=== PATIENT | female | born 1945 | race African-American/Black ===

== ENCOUNTER 2017-05-18 10:52 | Inpatient (IN) ==
[2017-05-18] MEDS ORDERED: FUROSEMIDE 100 MG/10 ML VIAL IV STA (11:16)
--- NOTE | 2017-05-18 11:36 | XRay Report ---
XR chest 1V portable Indication: Shortness of breath. Chest one view: No comparison. Cardiomegaly is present. Slight prominence of hilar structures with pulmonary vascular congestion and reticular prominence of the peripheral lungs noted. No focal infiltrate is seen. There is some degree of atelectasis at the lung bases exaggerated by overlying soft tissue density. Arthritic changes of the right shoulder severe. Impression: 1. CHF. 2. Bibasilar atelectasis. No focal pneumonia shown. 3. Severe arthritis right shoulder. PROCEDURE INTERPRETED AT [facility] DEPARTMENT OF RADIOLOGY Final Report Signed by: Isma Duenas M.D.
[2017-05-18 12:08] LABS: Basophils # 0.1 10*3/uL (0.0-0.2); Basophils % 0.9 % (0.0-0.8); Eosinophils # 0.3 10*3/uL (0.0-0.87); Eosinophils % 3.8 % (0.00-10.9); Hematocrit 53.1 VOL% (35.7-47.0); Hemoglobin 17.1 GM/DL (12.0-16.0); Immature Granulocytes % 0.5 %; Immature Granulocytes Absolute 0.04 #; Lymphocytes # 0.9 10*3/uL (1.4-4.0); Lymphocytes % 12.2 % (21.3-54.2); Mean Corpuscular HGB Conc 32.2 GM/DL (32-36); Mean Corpuscular Hemoglobin 28 PG (27-34); Mean Corpuscular Volume 88.2 FL (87-102); Mean Platelet Volume 9.8 FL (9.6-12.0); Monocytes # 0.6 10*3/uL (0.11-0.8); Monocytes % 7.6 % (1.7-12.7); Neutrophils # 5.5 10*3/uL (1.4-7.4); Platelet Count 161 T/CUMM (130-400); Red Blood Count 6.02 MC/CUMM (3.8-5.5); Red Cell Distribution Width 22.7 % (9.3-17.3); White Blood Count 7.4 T/CUMM (4-12)
[2017-05-18 12:22] LABS: INR 1.1; PT Patient Result 11.6 SECS; Partial Thromboplastin Time 28.2 SECS (0-40)
--- NOTE | 2017-05-18 12:22 | Emergency Department Note ---
Anthony Francis Brooke, am scribing for, and in the presence of, Jonas Soliman MD 11:23 . Janny Francis James D, MD, personally performed the services described in this documentation, ascribed by Massiel Cruz in my presence, and it is both accurate and complete . Arrival - Arrival Chief Complaint: Shortness of Breath Stated Complaint: respiratory distress/sent from office ED Nursing Triage Note: Pt sent from Dr Love's office for Resp distress, low O2 sat, swelling of lower ext, and Dx with Pneumonia 2 wks ago. Mode of Arrival: Wheelchair Limitations: No Limitations Source: Patient, Family (Daughter), RN Notes Reviewed Time Seen by Provider: 05/18/17 11:11 - History of Present Illness HPI Narrative: Patient is a 71 year old female who was sent over from [facility] with c/o respiratory distress. Patient says she does not feel short of breath. She says she does not get short of breath with exertion. She went to see the Nurse Practitioner, at [facility], with c/o bilateral lower extremity edema that has worsened. Daughter says they did a chest x-ray and says she had pneumonia. She denies having a fever, cough, or chest pain. Patient says the lower extremity edema has worsened in the past couple of weeks and she states "my feet are getting darker." She does have home oxygen(2L) that she uses. 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 The pain is worsened with movement. She denies injury or fall. Patient has PMHx of HTN, NIDDM, and COPD. She does not have a history of CHF or kidney problems. She is a smoker and says she smokes about 1/4 pack of cigarettes a day. She has been smoking since she was 20 years old. Allergies/Adverse Reactions: Allergies Allergy/AdvReac Type Severity Reaction Status Date / Time No Known Allergies Allergy Verified 05/18/17 10:58 Home Medications: Home Medications Medication Instructions Recorded Confirmed Type Albuterol Sulfate [Proair HFA] 2 puff INH Q6H PRN 05/18/17 05/18/17 History Albuterol/Ipratropium Neb [Duoneb] 3 ml RESP TX RT Q6H 05/18/17 05/18/17 History Allopurinol 100 mg PO BID 05/18/17 05/18/17 History Chlorthalidone 25 mg PO DAILY 05/18/17 05/18/17 History Diazepam Tab [Valium Tab] 5 mg PO BEDTIME 05/18/17 05/18/17 History Furosemide Tab [Lasix Tab] 40 mg PO DAILY 05/18/17 05/18/17 History Gabapentin Cap/Tab [Neurontin 600 mg PO TID 05/18/17 05/18/17 History Cap/Tab] Losartan [Cozaar] 50 mg PO DAILY 05/18/17 05/18/17 History Metoprolol Tartrate Tab [Lopressor 50 mg PO BID 05/18/17 05/18/17 History Tab] amLODIPine [Norvasc] 10 mg PO DAILY 05/18/17 05/18/17 History metFORMIN [Glucophage] 500 mg PO BID W/MEALS 05/18/17 05/18/17 History Review of System - Review of System 12 point system: reviewed and no additional remarkable complaints except as stated - Review of System Constitutional: Absent: fever Respiratory: Present: respiratory distress. Absent: cough Cardiovascular: Absent: chest pain Musculoskeletal: Present: arm pain (left) Skin: Absent: rash Medical,Surgical,& Family Hx - Medical History Cardio: History of: Hypertension Endocrine: History of: Diabetes Mellitus (NIDDM) Respiratory: History of: COPD - Social History Smoking Status: Current every day smoker Exam Vital Signs: Vital Signs Temperature 99.7 F H 05/18/17 10:55 Pulse Rate 77 05/18/17 10:55 Respiratory Rate 26 H 05/18/17 10:55 Blood Pressure 137/77 05/18/17 10:55 O2 Sat by Pulse Oximetry 73 L 05/18/17 10:55 GENERAL: This is a well-nourished well-developed black female, chronically ill- appearing, in no apparent distress. VITAL SIGNS: Reviewed HEENT: Head is atraumatic and normocephalic. Pupils are equal round react to light. Extraocular movements are intact. Oropharynx is benign with moist mucous membranes. NECK: Neck is soft and supple without tenderness. There are no masses. There is no lymphadenopathy. LUNGS: Lungs are clear to auscultation. Chest rises symmetrically. There is no chest wall tenderness. CV: Heart is regular rate and rhythm without murmurs rubs or gallops. ABDOMEN: Abdomen is soft, nontender to palpation. There are no abdominal abnormal masses palpated. There is no organomegaly. Bowel sounds are present and active. SKIN: Skin is warm and dry. No rash. EXTREMITIES: Patient has full range of motion without tenderness. There is 2+ pitting pedal edema. NEUROLOGIC: Awake alert and oriented 4 per Cranial nerves II through XII are grossly intact. Motor is 5 over 5 in all extremities bilaterally. Course - Consultations Consultation #1: Discussed with hospitalist. Patient will be admitted to their service. Time: 13:07 Results - Labs CBC & BMP: 05/18/17 11:57 05/18/17 11:57 Lab Results: I have reviewed the patients labs Labs: Laboratory Tests 05/18/17 05/18/17 11:57 11:57 Troponin I 0.029 B-Natriuretic Peptide 348 H Echocardiogram: Preliminary report consistent with pulmonary hypertension. Slightly dilated right ventricle. Appears to have normal LVEF. - EKG EKG results: interpreted by ERMD - Impressions EKG: Sinus rhythm, with sinus arrhythmia, rate 73, left axis deviation, nonspecific ST-T wave changes. - Diagnostic Findings Procedure: Chest x-ray: image reviewed by me (Cardiomegaly with increased pulmonary markings bilaterally) Disposition Clinical Impression: Dyspnea, Lower extremity edema, COPD with chronic respiratory failure, Nicotine addiction Case discussed with: patient, patient's family Disposition: Still a Patient Condition: Stable Time of Disposition: 13:07
[2017-05-18 12:26] LABS: Hypochromasia 1+; Microcytosis 1+; Polychromasia Slight; Target Cells Slight
[2017-05-18 12:27] LABS: Platelet Estimate Adequate
[2017-05-18 12:36] LABS: Albumin 3.3 G/DL (3.4-5.0); Bilirubin,Total 0.8 MG/DL (0.2-1.0); Calcium 9.4 MG/DL (8.5-10.1); Potassium 4.1 MMOL/L (3.5-5.1); Total Protein 6.6 G/DL (6.4-8.3); Troponin I Only 0.029 NG/ML (0.00-0.045)
[2017-05-18] MEDS ORDERED: FUROSEMIDE 100 MG/10 ML VIAL ONE (12:45)
[2017-05-18 13:04] LABS: Apearance,Urine CLEAR (Clear); Bilirubin,Urine Negative (Negative); Blood, Urine Negative (Negative); Glucose,Urine (UA) Negative (Negative); Ketones,Urine Negative (Negative); Nitrite,Urine Negative (Negative); Protein,Urine Negative; RBC,Urine <1 /HPF (0-4); Urine Color Yellow (Yellow); Urine Specific Gravity 1.008 (1.001-1.035); Urine Urobilinogen < 2.0 EU/DL (0.2-1.0); WBC,Urine <1 /HPF (0-6)
--- NOTE | 2017-05-18 13:31 | EKG Report ---
Stationary ECG Study [facility] ER Test Date: 05/18/2017 11:10:39 AM Pat Name: JOY SIMMS Department: Room: Gender: F Pta: : 1945 Requested by: Jonas Andersen Order Number: [id number] Reading MD: SONIDO ARANDA Intervals [place] Rate: 73 P: 55 ID: [id number] QRS: -33 QRSD: 89 T: 44 QT: 376 QTc: 401 Interpretive Statements SINUS RHYTHM WITH SINUS ARRHYTHMIA MARKED LEFT AXIS DEVIATION PATTERN CONSISTENT WITH PULMONARY DISEASE NONSPECIFIC T-WAVE ABNORMALITY Electronically Signed On 05-21-17 18:33:17 CDT by SONIDO ARANDA [email or web address]
--- NOTE | 2017-05-18 15:26 | Hospitalist History & Physical ---
<Haris Cunningham - Last Filed: 05/18/17 15:16> Assessment and Plan - Time spent with patient Time spent with patient: Greater than 30 minutes (1) COPD (chronic obstructive pulmonary disease) Status: Acute Assessment and plan: Patient presents with symptomatic dyspnea. She has a long-standing history of smoking (1/4 ppd x 20 years). Patient does have expiratory wheezing on exam. Will add breathing treatments and steroids as needed. Current Visit: Yes (2) CHF (congestive heart failure) Status: Acute Assessment and plan: BNP 348. Chest x-ray shows CHF. Patient has been given Lasix in the ED and had an output of 1700 cc at the time of exam. Will continue Lasix scheduled. Echocardiogram pending. Current Visit: Yes (3) Hypertension Status: Acute Assessment and plan: Continue home medications. Monitor closely. Current Visit: Yes (4) Hernia of abdominal cavity Status: Acute Current Visit: Yes (5) Dyspnea Status: Acute Assessment and plan: As above. Current Visit: Yes (6) Lower extremity edema Status: Acute Current Visit: Yes (7) Nicotine addiction Status: Acute Current Visit: Yes History of Present Illness Chief complaint: SOB, LE edema History of present illness: Ms. Aguilar is a 71 year old -[place] female with a past medical history significant for hypertension, NIDDM, COPD who presents to the ED today from her doctor's office for further evaluation of progressively worsening shortness of breath and lower extremity edema. Patient states that she had been short of breath for approximately 2 weeks however she has been having lower extremity edema for about 3 months now. She states that she was seen in Dr. Clark's office 2 weeks ago for shortness of breath where they got a chest x- ray revealing pneumonia. The patient was put on oral antibiotics and sent home. She returned to the clinic today with continued shortness of breath and bilateral lower extremity edema. Patient states that she routinely checks her oxygen saturations at home and they run upper 60s to upper 70s. She reports she does have home O2 which she uses intermittently as needed. Patient states that she does not feel short of breath ever. In the emergency room, the patient is satting in the upper 90s on 2 L O2 per NC. She continues to deny shortness of breath but confirms lower extremity edema with associated pain, abdominal pain, intermittent constipation, history of "shooting" left arm pain from wrist to shoulder. Lab work on admission reveals WBC 7.4, hemoglobin 17.1, hematocrit 53.1, BUN 37 , creatinine 1.00, serum glucose 118, BNP 348. Urinalysis negative for infection. Patient did have echocardiogram in the ED. Results are pending. Patient states that she has never had ultrasound of the lower extremities. Patient states that she has a long-standing history of smoking since she was in her mid 20s. States she smokes a quarter of a pack a day. This case been discussed with Dr. Soliman, ER physician, and Dr. Simon, admitting physician, and the patient will be admitted to the hospital medicine service for further evaluation and treatment. Patient is a full code. Home medications were reviewed and reconciled. Home Medications Medication Instructions Recorded Confirmed Type Albuterol Sulfate [Proair HFA] 2 puff INH Q6H PRN 05/18/17 05/18/17 History Albuterol/Ipratropium Neb [Duoneb] 3 ml RESP TX RT Q6H 05/18/17 05/18/17 History Allopurinol 100 mg PO BID 05/18/17 05/18/17 History Chlorthalidone 25 mg PO DAILY 05/18/17 05/18/17 History Diazepam Tab [Valium Tab] 5 mg PO BEDTIME 05/18/17 05/18/17 History Furosemide Tab [Lasix Tab] 40 mg PO DAILY 05/18/17 05/18/17 History Gabapentin Cap/Tab [Neurontin 600 mg PO TID 05/18/17 05/18/17 History Cap/Tab] Losartan [Cozaar] 50 mg PO DAILY 05/18/17 05/18/17 History Metoprolol Tartrate Tab [Lopressor 50 mg PO BID 05/18/17 05/18/17 History Tab] amLODIPine [Norvasc] 10 mg PO DAILY 05/18/17 05/18/17 History metFORMIN [Glucophage] 500 mg PO BID W/MEALS 05/18/17 05/18/17 History Allergies Allergy/AdvReac Type Severity Reaction Status Date / Time No Known Allergies Allergy Verified 05/18/17 10:58 Medical,Surgical,& Family Hx - Medical History Cardio: History of: Hypertension Endocrine: History of: Diabetes Mellitus (NIDDM) Respiratory: History of: COPD - Family History Family History: Reports;: Family Diabetes, Family Heart Disease, Family Hypertension - Social History Smoking Status: Current every day smoker (5 cigarettes daily for the last 40) Frequency of Alcohol Use: None Type of Drug Use: None Marital Status: Lives With:: Spouse Functional capacity: independent ambulation 12 point system: reviewed and no additional remarkable complaints except as stated Exam - Constitutional Vitals: Period Temp Pulse Resp BP Sys/Ahuja Pulse Ox Last 24 Hr 99.7 F 77 26 137/77 73 General appearance: mild distress, over weight - Head Head exam: Present: normal inspection, normocephalic, atraumatic - Eye Eye exam: Present: EOMI Pupils: Present: LUCILA - Neck Neck exam: Present: normal inspection. Absent: lymphadenopathy, tenderness, thyromegaly - Respiratory Respiratory exam: Present: wheezes (Expiratory). Absent: rhonchi - Cardiovascular Cardiovascular exam: Present: regular rate and rhythm - GI/Abdominal GI/Abdominal exam: Present: normal bowel sounds, hernia (Epigastric). Absent: tenderness, rebound - Extremities Exam Extremities exam: Present: normal inspection, full ROM, edema (Bilateral lower extremity) - Neurological Exam Neurological exam: Present: alert, oriented X3, CN II-XII intact, reflexes normal - Psychiatric Psychiatric exam: Present: anxious - Skin Skin exam: Present: warm, erythema. Absent: cyanosis Results - Labs CBC & BMP: 05/18/17 11:57 05/18/17 11:57 Lab Results: I have reviewed the past 24 hour labs - EKG EKG results: interpreted by ERMD - Diagnostic Findings Procedure: Chest x-ray: image reviewed by me, report reviewed by me (CHF with bilateral atelectasis) <Cheli Simon - Last Filed: 05/18/17 16:03> History of Present Illness History of present illness: Ms. Aguilar is a 71 year old female with multiple medical history now presenting with worsening SOB and LE swelling. Her legs are warm, erythematous and tender . Patient was seen, examined and discussed with the RADIOGRAPHIC TECHNOLOGIST. Plan Cardiac monitoring Fluid restriction GI/DVT prophylasix IV diuretics, asa, bblocker, ACEI IV Rocephin- Patient looks like she may be developing LE cellulits bilaterally Echo, serial cardiac enzymes Nicotine patch D-dimer, doppler of LE to r/o DVT Duonebs, UA,BC Exam - Constitutional Vitals: Period Temp Pulse Resp BP Sys/Ahuja Pulse Ox Last 24 Hr 99.7 F 77 26 137/77 73 Results - Labs CBC & BMP: 05/18/17 11:57 05/18/17 11:57
[2017-05-18] MEDS ORDERED: ONDANSETRON 4 MG/2 ML VIAL IV PRN (16:04)
[2017-05-18] MEDS ORDERED: ALBUTEROL 2.5 MG/3 ML NEB RESP TX PRN (16:04)
[2017-05-18] MEDS ORDERED: NICOTINE 21 MG/24 HR PATCH TRANSDERM PRN (16:04)
[2017-05-18] MEDS: ASPIRIN CHEW 81 MG TABLET PO SCH (17:10)
[2017-05-18] MEDS: ENOXAPARIN 40 MG/0.4 ML SYRINGE SUBCUT SCH (17:10)
[2017-05-18] MEDS: FUROSEMIDE 40 MG/4 ML VIAL IV SCH (17:10)
[2017-05-18] MEDS: MORPHINE 2 MG/1 ML SYRINGE IV PRN ×2 (17:20→21:29)
[2017-05-18] MEDS: cefTRIAXone 1,000 MG in SODIUM CHLORIDE 0.9% 100 ML IV SCH (17:24)
[2017-05-18 18:26] LABS: Cholesterol 156 MG/DL (50-200); Free T4 (Free Thyroxine) 1.57 NG/DL (0.76-1.46); HDL Cholesterol 70 MG/DL (40-60); Risk Ratio 2.23; Thyroid Stimulating Hormone 0.084 uIU/ml (0.358-3.74); Triglycerides 115 MG/DL (2-150); Troponin I Only 0.017 NG/ML (0.00-0.045)
--- NOTE | 2017-05-18 18:39 | ECHO Report ---
Bee Aguilar Exam Date: 05/18/2017 12:54 Referring Physician: Technologist: Yumiko Barors Age: 71 Ht (in): 65 Wt (lb): 215 Gender: F Exam Location: [facility] Echo Indications: dyspnea, lower ext. edema, respiratory distress BP: 137 / 77 HR: 112 Rhythm: Sinus Technical Quality: Fair IMPRESSIONS Normal LV systolic function, ejection fraction 60%. Grade 1/4 diastolic dysfunction. Mild concentric left ventricular hypertrophy. Right-sided chamber dilation. Trace mitral regurgitation. Mild tricuspid regurgitation. Pulmonary hypertension with pulmonary artery pressure estimated at 58 mmHg plus right atrial pressure. MEASUREMENTS (Male / Female) Normal Values 2D ECHO LV Diastolic Diameter PLAX 4.3 cm 4.2 - 5.9 / 3.9 - 5.3 cm LV Systolic Diameter PLAX 2.9 cm LV Fractional Shortening PLAX 33.5 % IVS Diastolic Thickness 1.3 cm 0.6 - 1.0 / 0.6 - 0.9 cm LVPW Diastolic Thickness 1.2 cm 0.6 - 1.0 / 0.6 - 0.9 cm Aortic Root Diameter 2.6 cm LA Systolic Diameter LX 3.2 cm 3.0 - 4.0 / 2.7 - 3.8 cm DOPPLER TR Peak Velocity 380.0 cm/s TR Peak Gradient 57.8 mmHg FINDINGS Left Ventricle Normal left ventricular cavity size. Mild concentric left ventricular hypertrophy with diastolic dysfunction. Left ventricular ejection fraction is estimated at 50-55 % Right Ventricle Mild to moderately increased right ventricular size. Right Atrium Moderately increased right atrial size. Left Atrium Normal left atrial size. Mitral Valve Morphologically normal mitral valve. Trace mitral valve regurgitation. Aortic Valve The aortic valve is trileaflet, delicate and has normal motion. Tricuspid Valve Morphologically normal tricuspid valve. Mild tricuspid valve regurgitation. Tricuspid regurgitation velocities suggest a PAP of 57.8 mmHg + RAP. Pulmonic Valve Morphologically normal pulmonic valve. Pericardium No pericardial effusion. Aorta Normal size aortic root and proximal ascending aorta. Imelda Moore MD (Electronically Signed) Final Date: 18 May 2017 18:38
[2017-05-18] MEDS: ALBUTEROL/IPRATROPIUM 3 ML NEB RESP TX SCH (19:29)
[2017-05-18 19:51] LABS: Apearance,Urine CLEAR (Clear); Bacteria,Urine Occasional /HPF (Few); Bilirubin,Urine Negative (Negative); Blood, Urine Large mg/dL (Negative); Glucose,Urine (UA) Negative (Negative); Ketones,Urine Negative (Negative); Nitrite,Urine Negative (Negative); Protein,Urine Negative; RBC,Urine 677 /HPF (0-4); Urine Color Straw (Yellow); Urine Specific Gravity 1.004 (1.001-1.035); Urine Urobilinogen < 2.0 EU/DL (0.2-1.0); WBC,Urine 19 /HPF (0-6)
--- NOTE | 2017-05-18 20:40 | Ultrasound Report ---
US venous doppler LE BI Indication: Lower extremity swelling and pain. Comparison: None. Technique: Using a transcutaneous probe, grayscale, spectral Doppler, and color Doppler images of the bilateral lower extremity venous structures were captured and stored. Grayscale images prior to and following compression were obtained. Interrogated venous structures include the bilateral common femoral vein, superficial femoral vein (proximal, mid, and distal), and popliteal vein. Findings: There is no evidence of thrombus within the interrogated venous structures. the interrogated venous segments demonstrate presence of both color flow and spectral flow. Impression: 1. No evidence of venous thrombosis. 05/18/2017 8:32 PM PROCEDURE INTERPRETED AT [facility] DEPARTMENT OF RADIOLOGY Final Report Signed by: Dr. Blaine Todd
[2017-05-18] MEDS: DIAZEPAM 5 MG TABLET PO SCH (21:28)
[2017-05-18] MEDS: ALLOPURINOL 100 MG TABLET PO SCH (21:29)
[2017-05-18] MEDS: METOPROLOL TARTRATE 50 MG TABLET PO SCH (21:29)
[2017-05-18] MEDS: GABAPENTIN 600 MG TABLET PO SCH (21:29)
[2017-05-19] MEDS: ALBUTEROL/IPRATROPIUM 3 ML NEB RESP TX SCH ×4 (00:40→19:06)
[2017-05-19 06:00] LABS: Basophils % 0.7 % (0.0-0.8); Eosinophils # 0.2 10*3/uL (0.0-0.87); Eosinophils % 2.8 % (0.00-10.9); Hematocrit 54.1 VOL% (35.7-47.0); Hemoglobin 17.3 GM/DL (12.0-16.0); Immature Granulocytes % 0.3 %; Immature Granulocytes Absolute 0.02 #; Lymphocytes # 1.2 10*3/uL (1.4-4.0); Lymphocytes % 19.2 % (21.3-54.2); Mean Corpuscular Hemoglobin 28 PG (27-34); Mean Corpuscular Volume 88.4 FL (87-102); Monocytes # 0.7 10*3/uL (0.11-0.8); Monocytes % 11.5 % (1.7-12.7); NRBC # 0.08 10*3/uL; Neutrophils % 65.5 % (38.7-73.9); Platelet Count 159 T/CUMM (130-400); Red Blood Count 6.12 MC/CUMM (3.8-5.5); Red Cell Distribution Width 22.9 % (9.3-17.3); White Blood Count 6.2 T/CUMM (4-12)
[2017-05-19 06:30] LABS: Hypochromasia 1+; Microcytosis Slight; Platelet Estimate Normal
[2017-05-19 06:31] LABS: Alanine Aminotransferase 42 U/L (13-56); Albumin 3.1 G/DL (3.4-5.0); Alkaline Phosphatase 150 U/L (45-117); Aspartate Amino Transferase 23 U/L (0-37); Blood Urea Nitrogen 26 MG/DL (7-18); Glucose 118 MG/DL (74-106); Magnesium 2.2 MG/DL (1.8-2.4); Osmolality,Calculated 291.8 MOS/KG (273-304); Potassium 3.8 MMOL/L (3.5-5.1); Sodium 144 MMOL/L (136-145); Total Protein 6.5 G/DL (6.4-8.3); Troponin I Only < 0.015 NG/ML (0.00-0.045)
[2017-05-19] MEDS: FUROSEMIDE 40 MG/4 ML VIAL IV SCH ×2 (10:09→16:40)
[2017-05-19] MEDS: GABAPENTIN 600 MG TABLET PO SCH ×3 (10:09→20:27)
[2017-05-19] MEDS: METOPROLOL TARTRATE 50 MG TABLET PO SCH ×2 (10:10→20:28)
[2017-05-19] MEDS: amLODIPine 10 MG TABLET PO SCH (10:10)
[2017-05-19] MEDS: PANTOPRAZOLE 40 MG TABLET PO SCH (10:11)
[2017-05-19] MEDS: ALLOPURINOL 100 MG TABLET PO SCH ×2 (10:11→20:28)
[2017-05-19] MEDS: CHLORTHALIDONE 25 MG TABLET PO SCH (10:11)
[2017-05-19] MEDS: ASPIRIN CHEW 81 MG TABLET PO SCH (10:11)
[2017-05-19] MEDS: LOSARTAN 50 MG TABLET PO SCH (10:12)
--- NOTE | 2017-05-19 13:22 | Hospitalist Progress Note ---
Assessment and Plan (1) CHF (congestive heart failure) Status: Acute Assessment and plan: Echo showed Normal LV systolic function, ejection fraction 60%. Grade 1/4 diastolic dysfunction. Mild concentric left ventricular hypertrophy Plan Continue nebds treatment, IV diuretics, asa, bblocker,ACEI Current Visit: Yes (2) COPD (chronic obstructive pulmonary disease) Status: Acute Assessment and plan: continue bronchodilators, oxygen Current Visit: Yes (3) Hypertension Status: Acute Assessment and plan: stable Current Visit: Yes (4) Lower extremity edema Status: Acute Assessment and plan: Doppler showed no DVT. There is possible early cellulitis which appears to be improving. Plan Continue with diuretics and Rocephin Follow IV Rocephin Current Visit: Yes (5) Nicotine addiction Status: Acute Assessment and plan: on patch. She was counseled to quit. Current Visit: Yes (6) Diabetes Status: Acute Assessment and plan: stable on current regime. [id number] Current Visit: Yes Hospitalist: Subjective Interval history: Patient complains of a back pain but breathes better. Exam - Constitutional Vitals: Period Temp Pulse Resp BP Sys/Ahuja Pulse Ox Last 24 Hr 97.2 F-99.7 F 56-89 18-26 115-142/55-77 80-97 General appearance: no acute distress - Head Head exam: Present: normal inspection - Respiratory Respiratory exam: Present: clear to auscultation bilaterally - Cardiovascular Cardiovascular exam: Present: regular rate and rhythm - GI/Abdominal GI/Abdominal exam: Present: normal bowel sounds - Extremities Exam Extremities exam: Present: other (trace edema) - Neurological Exam Neurological exam: Present: alert, oriented X3 Results - Labs CBC & BMP: 05/19/17 05:41 05/19/17 05:41 Lab Results: I have reviewed the past 24 hour labs
[2017-05-19] MEDS: ENOXAPARIN 40 MG/0.4 ML SYRINGE SUBCUT SCH (16:40)
[2017-05-19] MEDS: cefTRIAXone 1,000 MG in SODIUM CHLORIDE 0.9% 100 ML IV SCH (16:40)
[2017-05-19] MEDS: DIAZEPAM 5 MG TABLET PO SCH (20:28)
[2017-05-19] MEDS: MORPHINE 2 MG/1 ML SYRINGE IV PRN (20:28)
[2017-05-20] MEDS: ALBUTEROL/IPRATROPIUM 3 ML NEB RESP TX SCH ×4 (00:20→19:55)
[2017-05-20 06:37] LABS: Basophils # 0.1 10*3/uL (0.0-0.2); Basophils % 0.6 % (0.0-0.8); Eosinophils # 0.5 10*3/uL (0.0-0.87); Eosinophils % 6.2 % (0.00-10.9); Hematocrit 55.3 VOL% (35.7-47.0); Hemoglobin 17.6 GM/DL (12.0-16.0); Immature Granulocytes % 0.5 %; Immature Granulocytes Absolute 0.04 #; Lymphocytes # 1.7 10*3/uL (1.4-4.0); Lymphocytes % 20.7 % (21.3-54.2); Mean Corpuscular HGB Conc 31.8 GM/DL (32-36); Mean Corpuscular Hemoglobin 28 PG (27-34); Mean Corpuscular Volume 88.5 FL (87-102); Monocytes # 0.9 10*3/uL (0.11-0.8); Monocytes % 11.3 % (1.7-12.7); NRBC # 0.06 10*3/uL; Neutrophils # 4.9 10*3/uL (1.4-7.4); Neutrophils % 60.7 % (38.7-73.9); Platelet Count 170 T/CUMM (130-400); Red Blood Count 6.25 MC/CUMM (3.8-5.5); Red Cell Distribution Width 22.7 % (9.3-17.3); White Blood Count 8.1 T/CUMM (4-12)
[2017-05-20 07:12] LABS: Calcium 8.7 MG/DL (8.5-10.1); Osmolality,Calculated 289.3 MOS/KG (273-304); Potassium 3.4 MMOL/L (3.5-5.1)
[2017-05-20 07:14] LABS: Hypochromasia 1+; Platelet Estimate Adequate; Polychromasia Slight
[2017-05-20] MEDS: FUROSEMIDE 40 MG/4 ML VIAL IV SCH ×2 (08:35→16:30)
[2017-05-20] MEDS: GABAPENTIN 600 MG TABLET PO SCH ×3 (08:35→20:19)
[2017-05-20] MEDS: amLODIPine 10 MG TABLET PO SCH (08:35)
[2017-05-20] MEDS: ALLOPURINOL 100 MG TABLET PO SCH ×2 (08:36→20:19)
[2017-05-20] MEDS: PANTOPRAZOLE 40 MG TABLET PO SCH (08:36)
[2017-05-20] MEDS: CHLORTHALIDONE 25 MG TABLET PO SCH (08:36)
[2017-05-20] MEDS: ASPIRIN CHEW 81 MG TABLET PO SCH (08:36)
[2017-05-20] MEDS: METOPROLOL TARTRATE 50 MG TABLET PO SCH ×2 (08:36→20:19)
[2017-05-20] MEDS: LOSARTAN 50 MG TABLET PO SCH (08:36)
--- NOTE | 2017-05-20 13:11 | XRay Report ---
History: Pain Date: 05/20/2017 Study: Left shoulder 2 views Comparison exam: No previous similar study available for comparison There is no fracture, dislocation, or focal destructive osseous abnormality. There is mild hypertrophic change of the acromioclavicular joint. There is mild osteophyte formation of the inferior aspect of the glenoid process. There is osteopenia. Impression: Degenerative changes. Osteopenia. No definite acute process PROCEDURE INTERPRETED AT [facility] DEPARTMENT OF RADIOLOGY Final Report Signed by: Dr. Mya Henderson
[2017-05-20] MEDS: cefTRIAXone 1,000 MG in SODIUM CHLORIDE 0.9% 100 ML IV SCH (16:30)
[2017-05-20] MEDS: ENOXAPARIN 40 MG/0.4 ML SYRINGE SUBCUT SCH (16:30)
[2017-05-20] MEDS: DIAZEPAM 5 MG TABLET PO SCH (20:19)
[2017-05-21] MEDS: ALBUTEROL/IPRATROPIUM 3 ML NEB RESP TX SCH ×5 (00:12→23:55)
[2017-05-21] MEDS: FUROSEMIDE 40 MG/4 ML VIAL IV SCH (08:00)
[2017-05-21] MEDS: METOPROLOL TARTRATE 50 MG TABLET PO SCH ×2 (08:03→20:43)
[2017-05-21] MEDS: ALLOPURINOL 100 MG TABLET PO SCH ×2 (08:03→20:43)
[2017-05-21] MEDS: amLODIPine 10 MG TABLET PO SCH (08:03)
[2017-05-21] MEDS: CHLORTHALIDONE 25 MG TABLET PO SCH (08:03)
[2017-05-21] MEDS: PANTOPRAZOLE 40 MG TABLET PO SCH (08:03)
[2017-05-21] MEDS: GABAPENTIN 600 MG TABLET PO SCH ×3 (08:03→20:42)
[2017-05-21] MEDS: ASPIRIN CHEW 81 MG TABLET PO SCH (08:03)
[2017-05-21] MEDS: LOSARTAN 50 MG TABLET PO SCH (08:06)
--- NOTE | 2017-05-21 15:08 | Hospitalist Progress Note ---
Assessment and Plan (1) Lower extremity edema Status: Acute Assessment and plan: Much better Current Visit: Yes (2) Nicotine addiction Status: Acute Current Visit: Yes (3) COPD (chronic obstructive pulmonary disease) Status: Acute Assessment and plan: ulises Fenton Current Visit: Yes (4) Hypertension Status: Acute Assessment and plan: Home medications Current Visit: Yes Hospitalist: Subjective Interval history: No acute events overnight. Patient is without complaints. Long discussion with patient and her daughter about smoking cessation. Patient reports that she has no desire to stop smoking, although she know that it will eventually kill her. Exam - Constitutional Vitals: Period Temp Pulse Resp BP Sys/Ahuja Pulse Ox Last 24 Hr 96.7 F-97.8 F 55-71 12-22 104-129/46-69 81-93 General appearance: over weight - Head Head exam: Present: normocephalic, atraumatic - Eye Eye exam: Present: EOMI Pupils: Present: LUCILA - ENT ENT exam: Present: normal exam - Neck Neck exam: Present: normal inspection - Respiratory Respiratory exam: Present: clear to auscultation bilaterally. Absent: rhonchi, wheezes - Cardiovascular Cardiovascular exam: Present: regular rate and rhythm - GI/Abdominal GI/Abdominal exam: Present: normal bowel sounds, soft. Absent: tenderness, rebound - Extremities Exam Extremities exam: Present: normal inspection - Back Exam Back exam: Present: normal inspection - Neurological Exam Neurological exam: Present: alert, oriented X3 - Psychiatric Psychiatric exam: Present: normal affect, normal mood - Skin Skin exam: Present: warm, intact Results - Labs CBC & BMP: 05/20/17 06:19 05/20/17 06:19
[2017-05-21] MEDS ORDERED: MAGNESIUM HYDROXIDE SUSP 30 ML UDCUP PO ONE (15:51)
--- NOTE | 2017-05-21 16:14 | Hospitalist Progress Note ---
Assessment and Plan (1) Lower extremity edema Status: Acute Assessment and plan: Much better Switch lasix to po Current Visit: Yes (2) Nicotine addiction Status: Acute Current Visit: Yes (3) COPD (chronic obstructive pulmonary disease) Status: Acute Assessment and plan: Has not been formally diagnosed with PFTs, she does have an extensive smoking history and still smokes Duonebs, abx Wheezing today, change duonebs to Q4 and add low dose prednisone Also very sleepy, her bicarb is slightly elevated Will check ABGs Will also consider sleep evaluation, inpatient vs outpatient Current Visit: Yes (4) Hypertension Status: Acute Assessment and plan: Home medications Current Visit: Yes Hospitalist: Subjective Interval history: No acute events overnight. Patient is drowsy, she will wake up and answer questions appropriately though. She says that she has just been sleeping a lot. Exam - Constitutional Vitals: Period Temp Pulse Resp BP Sys/Ahuja Pulse Ox Last 24 Hr 96.7 F-97.8 F 55-71 12-22 110-129/46-69 81-93 General appearance: over weight - Head Head exam: Present: normocephalic, atraumatic - Eye Eye exam: Present: EOMI Pupils: Present: LUCILA - ENT ENT exam: Present: normal exam - Neck Neck exam: Present: normal inspection - Respiratory Respiratory exam: Present: wheezes - Cardiovascular Cardiovascular exam: Present: regular rate and rhythm - GI/Abdominal GI/Abdominal exam: Present: normal bowel sounds, soft. Absent: tenderness, rebound - Extremities Exam Extremities exam: Present: normal inspection - Back Exam Back exam: Present: normal inspection - Neurological Exam Neurological exam: Present: alert, oriented X3 - Psychiatric Psychiatric exam: Present: normal affect, normal mood - Skin Skin exam: Present: warm, intact Results - Labs CBC & BMP: 05/20/17 06:19 05/20/17 06:19
[2017-05-21] MEDS: ENOXAPARIN 40 MG/0.4 ML SYRINGE SUBCUT SCH (16:18)
[2017-05-21] MEDS: cefTRIAXone 1,000 MG in SODIUM CHLORIDE 0.9% 100 ML IV SCH (16:19)
[2017-05-21] MEDS ORDERED: predniSONE 20 MG TABLET PO SCH (16:30)
[2017-05-21 17:53] LABS: ABG HCO3 32.3 MMOL/L (20-26); ABG Oxygen Saturation 82.5 % (95-100); ABG PCO2 59.1 MM HG (35-48); ABG PH 7.404 (7.35-7.45); ABG PO2 47.9 MM HG (80-95); ABG TCO2 30.7 MMOL/L (23-27)
[2017-05-21] MEDS: DIAZEPAM 5 MG TABLET PO SCH (20:43)
[2017-05-22 03:44] LABS: ABG Base Excess 8.2 MMOL/L (-2.5-2.5); ABG HCO3 35.5 MMOL/L (20-26); ABG Oxygen Saturation 82.5 % (95-100); ABG PCO2 58.5 MM HG (35-48); ABG PH 7.401 (7.35-7.45); ABG PO2 43.9 MM HG (80-95); ABG TCO2 37.3 MMOL/L (23-27); Allen Test Positive; Pt O2 Delivery Device BIPAP
[2017-05-22] MEDS: ALBUTEROL/IPRATROPIUM 3 ML NEB RESP TX SCH ×5 (04:08→19:38)
[2017-05-22 06:41] LABS: Basophils % 0.7 % (0.0-0.8); Eosinophils # 0.1 10*3/uL (0.0-0.87); Eosinophils % 1.3 % (0.00-10.9); Hematocrit 53.1 VOL% (35.7-47.0); Hemoglobin 16.6 GM/DL (12.0-16.0); Immature Granulocytes % 0.3 %; Immature Granulocytes Absolute 0.02 #; Lymphocytes # 0.7 10*3/uL (1.4-4.0); Lymphocytes % 11.9 % (21.3-54.2); Mean Corpuscular HGB Conc 31.3 GM/DL (32-36); Mean Corpuscular Hemoglobin 28 PG (27-34); Mean Corpuscular Volume 89.4 FL (87-102); Mean Platelet Volume 10.7 FL (9.6-12.0); Monocytes # 0.4 10*3/uL (0.11-0.8); NRBC # 0.03 10*3/uL; Neutrophils # 4.9 10*3/uL (1.4-7.4); Neutrophils % 79.8 % (38.7-73.9); Platelet Count 181 T/CUMM (130-400); Red Blood Count 5.94 MC/CUMM (3.8-5.5); White Blood Count 6.1 T/CUMM (4-12)
[2017-05-22 07:14] LABS: Magnesium 2.9 MG/DL (1.8-2.4); Osmolality,Calculated 297.3 MOS/KG (273-304); Potassium 3.8 MMOL/L (3.5-5.1)
--- NOTE | 2017-05-22 08:26 | Hospitalist Progress Note ---
Assessment and Plan (1) Lower extremity edema Status: Acute Assessment and plan: Much better Lasix 40 po Current Visit: Yes (2) Nicotine addiction Status: Acute Current Visit: Yes (3) COPD (chronic obstructive pulmonary disease) Status: Acute Assessment and plan: Has not been formally diagnosed with PFTs, she does have an extensive smoking history and still smokes Duonebs, abx Also very sleepy, her bicarb is slightly elevated ABGs with CO2 retention, she appears to be attempting to compensate Changing to high dose steroids Repeating CXR and ABGs Pulmonary has been consulted Will also check a d-dimer Current Visit: Yes (4) Hypertension Status: Acute Assessment and plan: Home medications Current Visit: Yes Hospitalist: Subjective Interval history: No acute events overnight. Patient remains drowsy this morning. ABG yesterday evening 7.4/59/32. She was started on Bipap overnight. Per reports she did wear it. Her ABG collected early this morning is 7.4/58/43. Pulmonary has been consulted. Will recheck her ABG and CXR. Her oxxygen saturations have been hanging out at 88-89. Exam - Constitutional Vitals: Period Temp Pulse Resp BP Sys/Ahuja Pulse Ox Last 24 Hr 96.7 F-97.6 F 54-71 12-22 110-140/53-81 82-92 General appearance: over weight - Head Head exam: Present: normocephalic, atraumatic - Eye Eye exam: Present: EOMI Pupils: Present: LUCILA - ENT ENT exam: Present: normal exam - Neck Neck exam: Present: normal inspection - Respiratory Respiratory exam: Present: clear to auscultation bilaterally. Absent: rhonchi, wheezes - Cardiovascular Cardiovascular exam: Present: regular rate and rhythm - GI/Abdominal GI/Abdominal exam: Present: normal bowel sounds, soft. Absent: tenderness, rebound - Extremities Exam Extremities exam: Present: normal inspection - Back Exam Back exam: Present: normal inspection - Neurological Exam Neurological exam: Present: alert, oriented X3, other (drowsy) - Psychiatric Psychiatric exam: Present: normal affect, normal mood - Skin Skin exam: Present: warm, intact Results - Labs CBC & BMP: 05/22/17 05:18 05/22/17 05:18
[2017-05-22] MEDS ORDERED: methylPREDNISolone SOD SUC 40 MG/1 ML VIAL IV SCH (08:30)
--- NOTE | 2017-05-22 08:55 | XRay Report ---
Single view the chest. Indication: Shortness of breath. Comparison: May 18, 2017. The heart is enlarged. The film was obtained in expiration. Mild atelectasis at the left base. Pulmonary vasculature is normal. No consolidation or pleural effusion. Prominent degenerative changes at the right shoulder. Ossific density projecting under the glenohumeral joint. Impression: Cardiomegaly and left basilar atelectasis. PROCEDURE INTERPRETED AT [facility] DEPARTMENT OF RADIOLOGY Final Report Signed by: Dr. Joanna Ponce
[2017-05-22] MEDS: amLODIPine 10 MG TABLET PO SCH (08:56)
[2017-05-22] MEDS: LOSARTAN 50 MG TABLET PO SCH (08:56)
[2017-05-22] MEDS: ASPIRIN CHEW 81 MG TABLET PO SCH (08:57)
[2017-05-22] MEDS: METOPROLOL TARTRATE 50 MG TABLET PO SCH ×2 (08:57→20:39)
[2017-05-22] MEDS: GABAPENTIN 600 MG TABLET PO SCH ×3 (08:57→20:39)
[2017-05-22] MEDS: PANTOPRAZOLE 40 MG TABLET PO SCH (08:57)
[2017-05-22] MEDS: FUROSEMIDE 40 MG TABLET PO SCH (08:57)
[2017-05-22] MEDS: CHLORTHALIDONE 25 MG TABLET PO SCH (08:57)
[2017-05-22] MEDS: ALLOPURINOL 100 MG TABLET PO SCH ×2 (08:57→20:39)
[2017-05-22] MEDS: AZITHROMYCIN INJ 500 MG in SODIUM CHLORIDE 0.9% 250 ML IV SCH (08:59)
[2017-05-22 09:12] LABS: ABG Base Excess 8.5 MMOL/L (-2.5-2.5); ABG HCO3 31.9 MMOL/L (20-26); ABG Oxygen Saturation 87.7 % (95-100); ABG PCO2 57.2 MM HG (35-48); ABG PH 7.407 (7.35-7.45); ABG PO2 53.7 MM HG (80-95); ABG TCO2 29.9 MMOL/L (23-27); Allen Test Positive
--- NOTE | 2017-05-22 11:00 | Pulmonology Consult Note ---
History of Present Illness Chief complaint: Hypoxemia. Hypercarbia. 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 This patient is followed by Dr. Yeison Love. She complains of shortness of breath for 2 weeks and swelling of her lower extremities for 3 months. She told the nurse she carries an O2 sat monitor around with her at home and her O2 sats are usually in the 80s. I asked her what that she think was a cause of her lung problems and she said cigarette smoking. She denies any other known problems with her lungs. Patient denies solid dysphasia. Occasionally she has gastroesophageal reflux but absolutely denies any nocturnal symptoms and she denies any symptoms of aspiration. There is been no hemoptysis. She occasionally has a small amount of sputum production. Patient complains of shortness of breath and dyspnea on exertion. She has complained of some shooting pain in her left arm. The remainder the review of systems is negative. Allergies none Home medicines. See below Hospital medicines see below Past history. COPD. High blood pressure. [id number] diabetes mellitus. Gout. Bronchospastic disease. Social history smokes 5 cigarettes per day. Has smoked for 40 years. Denies alcohol and drug use. . 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 Family history. Positive for high blood pressure, diabetes mellitus and heart disease Doppler venograms. 05/18/2017. No evidence of deep venous thrombophlebitis. EKG. Regular sinus rhythm. Left anterior hemiblock. Nonspecific STs and T's. Echocardiogram. 05/18/2017. Ejection fraction 50%. Grade 1/4 diastolic dysfunction. Mild concentric left ventricular hypertrophy. Right-sided atrial and ventricular dilatation. Pulmonary artery pressures were estimated to be 58 mmHg. Chest x-ray. 05/18/2017 and 05/22/2017. Mild cardiomegaly. Cannot rule out interstitial lung disease. This is complicated by a lot of overlying soft tissue. ABGs on 05/21/2017 showed a pH of 7.40, PCO2 59.1, PO2 of 47.9 and a bicarb of 32.5. ABGs on 05/22/2017 and an FiO2 of 28% show a pH of 7.407, PCO2 of 57.2, PO2 53.7 and a bicarb of 31.9 Lab electrolytes are normal. Admit nitrated peptide was elevated 348 and a follow-up was normal and 96. Creatinine is 1.2 with a BUN of 38. H&H is 16.6/ 53.4. White count is 6100 and platelets are 181,000. Urine shows no evidence of infection. TSH is low and free T4 is is elevated. Physical exam. Vital signs. See below Psychiatric. Oriented 3 Neurologic. Cranial nerves are intact. Long track motor functions intact. Gait was not tested and sensory exam was not done Face. Symmetrical. No edema of the lips or tongue. Neck. Symmetrical slightly kyphotic with no meningismus and no masses. Thyroid was not palpated Lymphatics. No submandibular cervical supraclavicular or epitrochlear adenopathy. Chest is symmetrical kyphotic with mild prolongation of expiration. I did not hear any wheezes. Heart. Heart sounds are distant. I cannot hear a gallop or murmur. Breasts. Deferred Abdomen. Obese and nontender with positive bowel sounds Lower extremities. Chronic venous stasis with mild residual edema. Skin. Face and hands show no cancerous or infectious lesions. Lower extremities show chronic venous stasis. No other areas of skin were examined. The remainder the physical exam was negative. Impression. 1. Respiratory failure for oxygen and carbon dioxide. I suspect this is chronic especially in the face of polycythemia. Also the patient says she has an O2 sat monitor and her sats are chronically in the 80s. Because of the hypoxemia is not apparent. May be related related to emphysema but chest x-ray suggests there may be an interstitial component. 2. Tobacco abuse 3. Polycythemia most likely related to hypoxemia 4. Diabetes mellitus 5. 3 month history of increasing peripheral edema. Echo cardiographic evidence of enlarged right atrium and right ventricle. Pulmonary hypertension by echocardiographic criteria. This looks like right heart failure on the basis of pulmonary hypertension 6. Pulmonary hypertension. Etiology undetermined. Sleep apnea could be playing a part. Look for other causes such as chronic pulmonary emboli. Note that the patient was on Norvasc 10 mg daily at the time of admission. This would be the first drug to use in most cases so her pulmonary hypertension may already be a diagnosis. 7. Diabetes mellitus 8. High blood pressure 9. See past history Plan 1. CT of the chest with and without contrast. Look for interstitial lung disease. Evaluate pulmonary arteries. Rule out pulmonary emboli. 2. Complete pulmonary function test pre-and postbronchodilator spirometry 3. Agree with sleep medicine consultation 4. Angiotensin-converting enzyme 5. Sedimentation rate. 6. Diamox 250 mg p.o. twice daily 7. Follow-up ABGs, chest x-ray, BNP, BMP Home Medications Medication Instructions Recorded Confirmed Type Albuterol Sulfate [Proair HFA] 2 puff INH Q6H PRN 05/18/17 05/18/17 History Albuterol/Ipratropium Neb [Duoneb] 3 ml RESP TX RT Q6H 05/18/17 05/18/17 History Allopurinol 2 tablet PO BID 05/18/17 05/18/17 History Aspirin EC Tab 1 tablet PO DAILY 05/18/17 05/18/17 History Cetirizine Tab [ZyrTEC Tab] 1 tablet PO DAILY PRN 05/18/17 05/18/17 History Chlorthalidone 25 mg PO DAILY 05/18/17 05/18/17 History Diazepam Tab [Valium Tab] 5 mg PO BEDTIME 05/18/17 05/18/17 History Gabapentin Cap/Tab [Neurontin 600 mg PO TID 05/18/17 05/18/17 History Cap/Tab] Glycopyrrolate/Formoterol Fum 1 inhaler INH DAILY 05/18/17 05/18/17 History [Bevespi Aerosphere Inhaler] Losartan [Cozaar] 50 mg PO DAILY 05/18/17 05/18/17 History Metoprolol Tartrate Tab [Lopressor 50 mg PO BID 05/18/17 05/18/17 History Tab] Triamcinolone Acetonide 1 applic TOP BID 05/18/17 05/18/17 History [Triamcinolone 0.1% Cream] metFORMIN [Glucophage] 500 mg PO BID W/MEALS 05/18/17 05/18/17 History Allergies Allergy/AdvReac Type Severity Reaction Status Date / Time No Known Allergies Allergy Verified 05/18/17 10:58 Exam (Pulmonay) H&P - Constitutional Vitals: Period Temp Pulse Resp BP Sys/Ahuja Pulse Ox Last 24 Hr 96.7 F-97.6 F 54-71 12-22 110-140/53-81 82-92 Medical,Surgical,& Family Hx - Medical History Cardio: History of: Hypertension Psychological: No history of: Anxiety Disorders, ADHD, Behavior Problems, Bipolar Disorder, Depression, Previous Suicide Attempt, Psychiatric/Substance Abuse Tx, Schizophrenia, Violent Behavior, Psychiatric Problems Endocrine: History of: Diabetes Mellitus (NIDDM) Respiratory: History of: COPD - Family History Family History: Reports;: Family Diabetes, Family Heart Disease, Family Hypertension - Social History Smoking Status: Current every day smoker Frequency of Alcohol Use: None Type of Drug Use: None Results - Labs CBC & BMP: 05/22/17 05:18 05/22/17 05:18
[2017-05-22 11:42] LABS: Free T4 (Free Thyroxine) 1.17 NG/DL (0.76-1.46); Thyroid Stimulating Hormone 0.019 uIU/ml (0.358-3.74)
--- NOTE | 2017-05-22 12:34 | CT Report ---
CT of the chest with and without contrast. Indication: Hypoxemia and decreased oxygen saturation. Axial images were obtained with sagittal and coronal reconstructions. No prior studies. 100 cc Optiray 350. No prior studies. The thyroid gland is borderline prominent in size. No supraclavicular lymphadenopathy is seen. There are lymph nodes within both axillary regions which measure enlarged but retain their fatty maría. There are dilated venous structures within the right breast. There are coarse calcifications within each breast. The thoracic aorta is of normal caliber, with heavy plaque in its wall. There is coronary artery calcification. The heart is normal in size. There is no pericardial or pleural effusion. There is hilar and mediastinal lymphadenopathy present. An AP window lymph node measures 3.1 x 1.1 cm. A precarinal lymph node measures 2.6 x 1.5 cm. A subcarinal lymph node measures 2.3 x 2.6 cm. A second subcarinal lymph node measures 3.6 x 2.3 cm. Multiple hilar lymph nodes in the 1 to 2 cm range. Hypoaeration changes are noted at the lung bases. The interstitial markings are prominent and there is some scarring also present. No suspicious pulmonary masses are identified. The fine and coarse interstitial markings are prominent. No emphysematous change. No bullous disease. There is scoliosis and degenerative change involving the spinal column. A cyst is present within the mid right kidney. Impression: 1. Borderline prominent thyroid gland. 2. Atherosclerosis. 3. Hilar and mediastinal lymphadenopathy. 4. Scarring and fibrotic changes of the lung lal. 5. Dilated venous structures within the right breast. 6. Bilateral breast calcifications. The CT exam was performed using one or more of the following dose reduction techniques: Automated exposure control, adjustment of the mA and/or kV according to patient size, or use of iterative reconstruction technique. PROCEDURE INTERPRETED AT [facility] DEPARTMENT OF RADIOLOGY Final Report Signed by: Dr. Joanna Ponce
--- NOTE | 2017-05-22 13:29 | Sleep Medicine Consult ---
Assessment and Plan (1) Unspecified sleep apnea Status: Acute Assessment and plan: Her symptoms certainly are concerning for sleep apnea and with her comorbidities , I do think sleep evaluation is indicated. Given the complexity of her illness and her comorbidities, I think she would best be served by evaluation in the sleep lab. This will be scheduled at the next available date. Current Visit: Yes (2) Hypertension Status: Acute Assessment and plan: The prevalence rate for obstructive sleep apnea patients with hypertension is 35 %. That rate can be as high as 80% in patients who require 4 or more medications for blood pressure control. Current Visit: Yes (3) Diabetes Status: Acute Assessment and plan: The prevalence rate for obstructive sleep apnea in patients with type 2 diabetes can be as high as 86%. Those patients with moderate to severe obstructive sleep apnea are at a greater risk for diabetic nephropathy and neuropathy. Compliance with CPAP therapy for these patients can lead to improvement in glycemic control and improvement in insulin sensitivity. Current Visit: Yes History of Present Illness Chief complaint: Sleep apnea History of present illness: Ms. Aguilar is a 71 year old female admitted with shortness of breath and lower extremity swelling. She was found to have evidence of chronic respiratory failure and pulmonary hypertension. She does snore and does have problems with daytime fatigue and sleepiness. She had a stop bang score of 5 and an [place] sleepiness score of 15. She states that she had undergone sleep study in the past in [place] but did not require CPAP therapy for sleep apnea. She has gained significant weight with fluid retention over the past few weeks and was found to have evidence of chronic respiratory failure and pulmonary hypertension. Sleep medicine was consulted. Home Medications Medication Instructions Recorded Confirmed Type Albuterol Sulfate [Proair HFA] 2 puff INH Q6H PRN 05/18/17 05/18/17 History Albuterol/Ipratropium Neb [Duoneb] 3 ml RESP TX RT Q6H 05/18/17 05/18/17 History Allopurinol 2 tablet PO BID 05/18/17 05/18/17 History Aspirin EC Tab 1 tablet PO DAILY 05/18/17 05/18/17 History Cetirizine Tab [ZyrTEC Tab] 1 tablet PO DAILY PRN 05/18/17 05/18/17 History Chlorthalidone 25 mg PO DAILY 05/18/17 05/18/17 History Diazepam Tab [Valium Tab] 5 mg PO BEDTIME 05/18/17 05/18/17 History Gabapentin Cap/Tab [Neurontin 600 mg PO TID 05/18/17 05/18/17 History Cap/Tab] Glycopyrrolate/Formoterol Fum 1 inhaler INH DAILY 05/18/17 05/18/17 History [Bevespi Aerosphere Inhaler] Losartan [Cozaar] 50 mg PO DAILY 05/18/17 05/18/17 History Metoprolol Tartrate Tab [Lopressor 50 mg PO BID 05/18/17 05/18/17 History Tab] Triamcinolone Acetonide 1 applic TOP BID 05/18/17 05/18/17 History [Triamcinolone 0.1% Cream] metFORMIN [Glucophage] 500 mg PO BID W/MEALS 05/18/17 05/18/17 History Allergies Allergy/AdvReac Type Severity Reaction Status Date / Time No Known Allergies Allergy Verified 05/18/17 10:58 Review of systems: Negative for witnessed apneas. She does awaken from sleep short of breath. Exam (Pulmonay) H&P - Constitutional Vitals: Period Temp Pulse Resp BP Sys/Ahuja Pulse Ox Last 24 Hr 96.5 F-97.6 F 54-71 12-20 110-140/53-81 82-92 Exam: She is alert and responsive in no acute distress. Pupils equal round reactive to light and accommodation. Extraocular movements intact. Oropharynx with a class III Mallampati exam. Neck is supple without adenopathy or thyromegaly. Chest with fair air movement without focal wheeze or rhonchi. Cardiac exam reveals a regular rhythm without murmur or gallop. Abdomen soft nontender without palpable hepatosplenomegaly or mass. Extremities with pitting edema bilaterally. Neurologically, she is grossly intact. Medical,Surgical,& Family Hx - Medical History Cardio: History of: Hypertension Psychological: No history of: Anxiety Disorders, ADHD, Behavior Problems, Bipolar Disorder, Depression, Previous Suicide Attempt, Psychiatric/Substance Abuse Tx, Schizophrenia, Violent Behavior, Psychiatric Problems Endocrine: History of: Diabetes Mellitus (NIDDM) Respiratory: History of: COPD - Family History Family History: Reports;: Family Diabetes, Family Heart Disease, Family Hypertension - Social History Smoking Status: Current every day smoker Frequency of Alcohol Use: None Type of Drug Use: None Results - Labs CBC & BMP: 05/22/17 05:18 05/22/17 05:18 Lab Results: I have reviewed the past 24 hour labs Labs: Erythrocytosis noted in ABGs reviewed
[2017-05-22] MEDS: INSULIN REGULAR 100 UNIT/ML SUBCUT SCH ×2 (17:12→20:38)
[2017-05-22] MEDS: methylPREDNISolone SOD SUC 125 MG/2 ML VIAL IV SCH (17:12)
[2017-05-22] MEDS: cefTRIAXone 1,000 MG in SODIUM CHLORIDE 0.9% 100 ML IV SCH (17:12)
[2017-05-22] MEDS: ENOXAPARIN 40 MG/0.4 ML SYRINGE SUBCUT SCH (17:13)
[2017-05-23] MEDS: ALBUTEROL/IPRATROPIUM 3 ML NEB RESP TX SCH ×7 (00:11→23:53)
[2017-05-23 03:55] LABS: ABG Base Excess 5.1 MMOL/L (-2.5-2.5); ABG HCO3 28.6 MMOL/L (20-26); ABG Oxygen Saturation 86.5 % (95-100); ABG PCO2 61.3 MM HG (35-48); ABG PH 7.348 (7.35-7.45); ABG TCO2 28.1 MMOL/L (23-27); Allen Test Positive
[2017-05-23] MEDS: methylPREDNISolone SOD SUC 125 MG/2 ML VIAL IV SCH ×2 (05:01→17:30)
[2017-05-23 06:31] LABS: Basophils % 0.3 % (0.0-0.8); Hematocrit 56.1 VOL% (35.7-47.0); Hemoglobin 16.9 GM/DL (12.0-16.0); Immature Granulocytes % 0.5 %; Immature Granulocytes Absolute 0.05 #; Lymphocytes # 0.9 10*3/uL (1.4-4.0); Lymphocytes % 9.2 % (21.3-54.2); Mean Corpuscular HGB Conc 30.1 GM/DL (32-36); Mean Corpuscular Hemoglobin 28 PG (27-34); Mean Corpuscular Volume 92.7 FL (87-102); Mean Platelet Volume 10.8 FL (9.6-12.0); Monocytes # 0.6 10*3/uL (0.11-0.8); Monocytes % 6.6 % (1.7-12.7); Neutrophils % 83.4 % (38.7-73.9); Platelet Count 193 T/CUMM (130-400); Red Blood Count 6.05 MC/CUMM (3.8-5.5); Red Cell Distribution Width 21.9 % (9.3-17.3); White Blood Count 9.6 T/CUMM (4-12)
[2017-05-23 07:20] LABS: Calcium 9.5 MG/DL (8.5-10.1); Magnesium 2.7 MG/DL (1.8-2.4); Osmolality,Calculated 296.3 MOS/KG (273-304); Potassium 3.9 MMOL/L (3.5-5.1)
[2017-05-23 07:38] LABS: Platelet Estimate Normal
[2017-05-23 07:39] LABS: Hypochromasia Slight
--- NOTE | 2017-05-23 10:54 | Pulmonology Progress Note ---
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 I saw her in pulmonary consultation on 05/22/2017. My impressions were. 1. Respiratory failure for oxygen and carbon dioxide. I suspect this is chronic especially in the face of polycythemia. Also the patient says she has an O2 sat monitor and her sats are chronically in the 80s. Because of the hypoxemia is not apparent. May be related related to emphysema but chest x-ray suggests there may be an interstitial component. 2. Tobacco abuse 3. Polycythemia most likely related to hypoxemia 4. Diabetes mellitus 5. 3 month history of increasing peripheral edema. Echo cardiographic evidence of enlarged right atrium and right ventricle. Pulmonary hypertension by echocardiographic criteria. This looks like right heart failure on the basis of pulmonary hypertension 6. Pulmonary hypertension. Etiology undetermined. Sleep apnea could be playing a part. Look for other causes such as chronic pulmonary emboli. Note that the patient was on Norvasc 10 mg daily at the time of admission. This would be the first drug to use in most cases so her pulmonary hypertension may already be a diagnosis. 7. Diabetes mellitus 8. High blood pressure 9. See past history 05/23/2017. Patient was interviewed again today. Beck Holden nurse practitioner was present. This lady is not exactly a forthcoming historian. Today we find out that she was hospitalized about a year ago for hypoxemia. She of course does not know why she was hypoxic but her doctor gave her oxygen to use at home whenever she needed it. She is not aware that her chest x-ray has been abnormal in the past and she was not aware that she has pulmonary hypertension. She has gastroesophageal reflux but she denies nocturnal symptoms and she denies microaspiration. Her chest x-ray and CT scan show interstitial disease which is most prominent at the posterior bases. This would be called idiopathic pulmonary fibrosis. 40% of these come from chronic aspirator's. Her pattern of disease strongly suggests is a history of microaspiration. In addition on pulmonary function test she has some mild obstructive disease with bronchodilator effect. Patient has pulmonary hypertension and this is likely related to chronic hypoxemia and probably obstructive sleep apnea. See Dr. Ellen Tsai sleep medicine consultation. She continues to smoke and says she enjoys smoking. I had a very mendoza discussion about the fact that she will be killing herself if she continues to smoke. Also at some point we may need to do biopsies of her lungs but I think this will be further down the road. I am starting her on Singulair 10 mg daily. Physical exam. Vital signs. See below Psychiatric. Oriented 3. Patient is not a forthcoming historian and I get the feeling she is only willing to tell me pertinent history reluctantly. Face. Symmetrical. No edema of the lips or tongue. Neck. Symmetrical kyphotic with no meningismus. Lymphatics. No submandibular cervical supraclavicular or epitrochlear adenopathy Chest. Symmetrical and kyphotic with prolonged expiration and a very slight tracheal wheeze. Heart. No gallop Abdomen obese. Nontender. Positive bowel sounds Extremities. Mild to moderate chronic venous stasis changes. Neurologic. Cranial nerves are intact. Long track motor functions intact. Skin. No cancerous infectious lesions of the face or hands. Chronic venous stasis of the lower extremities. No other areas of skin examined The remainder the physical exam is negative. Plan 05/22/[address] of the chest with and without contrast. Look for interstitial lung disease. Evaluate pulmonary arteries. Rule out pulmonary emboli. 2. Complete pulmonary function test pre-and postbronchodilator spirometry 3. Agree with sleep medicine consultation 4. Angiotensin-converting enzyme 5. Sedimentation rate. 6. Diamox 250 mg p.o. twice daily 7. Follow-up ABGs, chest x-ray, BNP, BMP 05/23/2017 1. See today's note above. 2. Start Singulair 3. See pulmonary function test 4. Agree with sleep studies. 5. ABGs continued to show hypoxemia and hypercarbia. 6. Some point this patient will need transbronchial biopsies of 1 of her lower lungs to clarify her pathology. She may be a candidate for steroids or she may be a candidate for other medicines such as esbriet. Exam (Progress Note) - Constitutional Vitals: Period Temp Pulse Resp BP Sys/Ahuja Pulse Ox Last 24 Hr 96.5 F-98.1 F 58-94 18-20 125-155/69-85 88-100 Results - Labs CBC & BMP: 05/23/17 05:31 05/23/17 05:31
[2017-05-23] MEDS: LOSARTAN 50 MG TABLET PO SCH (10:55)
[2017-05-23] MEDS: INSULIN REGULAR 100 UNIT/ML SUBCUT SCH ×4 (10:55→21:30)
[2017-05-23] MEDS: ASPIRIN CHEW 81 MG TABLET PO SCH (10:55)
[2017-05-23] MEDS: GABAPENTIN 600 MG TABLET PO SCH ×3 (10:55→21:31)
[2017-05-23] MEDS: METOPROLOL TARTRATE 50 MG TABLET PO SCH ×2 (10:56→21:31)
[2017-05-23] MEDS: PANTOPRAZOLE 40 MG TABLET PO SCH (10:56)
[2017-05-23] MEDS: FUROSEMIDE 40 MG TABLET PO SCH (10:56)
[2017-05-23] MEDS: ALLOPURINOL 100 MG TABLET PO SCH ×2 (10:56→21:32)
[2017-05-23] MEDS: CHLORTHALIDONE 25 MG TABLET PO SCH (10:57)
[2017-05-23] MEDS: AZITHROMYCIN INJ 500 MG in SODIUM CHLORIDE 0.9% 250 ML IV SCH (11:01)
[2017-05-23] MEDS: MONTELUKAST 10 MG TABLET PO SCH (11:07)
[2017-05-23] MEDS: amLODIPine 10 MG TABLET PO SCH (11:07)
[2017-05-23] MEDS: MORPHINE 2 MG/1 ML SYRINGE IV PRN ×2 (11:08→17:37)
--- NOTE | 2017-05-23 11:19 | Hospitalist Progress Note ---
Assessment and Plan (1) Lower extremity edema Status: Resolved Assessment and plan: Much better Lasix 40 po Current Visit: Yes (2) Nicotine addiction Status: Acute Assessment and plan: Several discussions about smoking cessation, she has no desire to quit Current Visit: Yes (3) COPD (chronic obstructive pulmonary disease) Status: Acute Assessment and plan: Has not been formally diagnosed with PFTs, she does have an extensive smoking history and still smokes Duonebs, abx Pulmonary assisting Per reports, she does have mild obstructive disease CT chest is consistent with interstitial lung disease PFTs Started on diamox and singulair Dr. Tsai also assisting Current Visit: Yes (4) Hypertension Status: Acute Assessment and plan: Home medications Current Visit: Yes Hospitalist: Subjective Interval history: No acute events overnight. Patient reports that she feels better. Her is present this morning. Exam - Constitutional Vitals: Period Temp Pulse Resp BP Sys/Ahuja Pulse Ox Last 24 Hr 96.5 F-98.1 F 58-94 18-20 125-155/69-85 88-100 General appearance: over weight - Head Head exam: Present: normocephalic, atraumatic - Eye Eye exam: Present: EOMI Pupils: Present: LUCILA - ENT ENT exam: Present: normal exam - Neck Neck exam: Present: normal inspection - Respiratory Respiratory exam: Present: clear to auscultation bilaterally - Cardiovascular Cardiovascular exam: Present: regular rate and rhythm - GI/Abdominal GI/Abdominal exam: Present: normal bowel sounds, soft. Absent: tenderness, rebound - Extremities Exam Extremities exam: Present: normal inspection - Back Exam Back exam: Present: normal inspection - Neurological Exam Neurological exam: Present: alert, oriented X3 - Psychiatric Psychiatric exam: Present: normal affect, normal mood - Skin Skin exam: Present: warm, intact Results - Labs CBC & BMP: 05/23/17 05:31 05/23/17 05:31
--- NOTE | 2017-05-23 13:39 | XRay Report ---
XR chest 2V Indication: Shortness of breath and hypoxemia. Comparison: Chest x-ray 05/22/2017. Technique: PA and lateral chest x-ray was performed. Findings: Bilaterally, does been interval partial clearing of interstitial opacities and airspace opacities in the mid lower chest as well as decreased prominence of pulmonary vasculature. Heart size remains minimally enlarged. Minimal blunting the costophrenic angles is noted. Impression: 1. The appearance of the chest is most compatible with improving pulmonary edema. 05/23/2017 1:36 PM PROCEDURE INTERPRETED AT [facility] DEPARTMENT OF RADIOLOGY Final Report Signed by: Dr. Blaine Todd
[2017-05-23] MEDS: BENZONATATE 100 MG CAPSULE PO PRN ×2 (14:08→21:31)
[2017-05-23] MEDS: guaiFENesin 200 MG/10 ML UDCUP PO PRN ×2 (14:09→21:35)
[2017-05-23] MEDS: ENOXAPARIN 40 MG/0.4 ML SYRINGE SUBCUT SCH (17:30)
[2017-05-23] MEDS: cefTRIAXone 1,000 MG in SODIUM CHLORIDE 0.9% 100 ML IV SCH (17:30)
[2017-05-24] MEDS: ALBUTEROL/IPRATROPIUM 3 ML NEB RESP TX SCH ×5 (03:15→20:23)
[2017-05-24] MEDS: methylPREDNISolone SOD SUC 125 MG/2 ML VIAL IV SCH (04:56)
[2017-05-24 06:51] LABS: Basophils % 0.1 % (0.0-0.8); Hematocrit 52.8 VOL% (35.7-47.0); Hemoglobin 16.7 GM/DL (12.0-16.0); Immature Granulocytes % 0.9 %; Immature Granulocytes Absolute 0.09 #; Lymphocytes # 0.6 10*3/uL (1.4-4.0); Lymphocytes % 5.4 % (21.3-54.2); Mean Corpuscular HGB Conc 31.6 GM/DL (32-36); Mean Corpuscular Hemoglobin 28 PG (27-34); Mean Corpuscular Volume 88.6 FL (87-102); Mean Platelet Volume 10.1 FL (9.6-12.0); Monocytes # 0.6 10*3/uL (0.11-0.8); Monocytes % 5.3 % (1.7-12.7); Neutrophils # 9.1 10*3/uL (1.4-7.4); Neutrophils % 88.3 % (38.7-73.9); Platelet Count 194 T/CUMM (130-400); Red Blood Count 5.96 MC/CUMM (3.8-5.5); Red Cell Distribution Width 21.2 % (9.3-17.3); White Blood Count 10.3 T/CUMM (4-12)
[2017-05-24 07:28] LABS: Calcium 9.2 MG/DL (8.5-10.1); Magnesium 2.5 MG/DL (1.8-2.4); Osmolality,Calculated 303.8 MOS/KG (273-304); Potassium 3.9 MMOL/L (3.5-5.1)
--- NOTE | 2017-05-24 08:13 | Hospitalist Progress Note ---
Assessment and Plan (1) COPD (chronic obstructive pulmonary disease) Status: Chronic Assessment and plan: Hypercapnia with secondary erythrocytosis and a moderately severe pulmonary hypertension and oxygen sensitivity. Current Visit: Yes (2) Diabetes Status: Chronic Assessment and plan: Exacerbated by corticosteroid therapy. Current Visit: Yes Qualifiers: Diabetes mellitus type: type 2 Hospitalist: Subjective Interval history: 71-year-old female smoker with history of COPD with minimal active treatment as an outpatient. She has a diagnosis of hypertension and [id number] diabetes she demonstrated peripheral edema associated with increasing levels of shortness of breath prior to admission. She was on double diuretics. Her initial laboratory work showed a presumed secondary erythrocytosis, elevated CO2 content with minimally elevated BUN to creatinine ratio. Her albumin level was 3.3. Her free T4 was elevated at 1.57 with a TSH of 0.084. Initial blood gases demonstrated pH is 7.40 PCO2 of 59 with a PO2 of 48. Serial arterial blood gases showed tendency to PCO2 retention associated with improved oxygenation. She is currently feeling much better than admission. Her vital signs are stable she is afebrile. With use of corticosteroids her capillary blood glucoses have been substantially elevated. She has been placed on Diamox and has completed a course of intravenous antibiotics. Her echocardiogram this admission shows an ejection fraction of 50-55% and her calculated right ventricular systolic pressure is 60-65 mmHg. Exam - Constitutional Vitals: Period Temp Pulse Resp BP Sys/Ahuja Pulse Ox Last 24 Hr 97.1 F-98.0 F 61-80 16-20 107-148/61-85 79-99 General appearance: over weight - Respiratory Respiratory exam: Present: clear to auscultation bilaterally. Absent: rales, rhonchi, wheezes - Cardiovascular Cardiovascular exam: Present: regular rate and rhythm - GI/Abdominal GI/Abdominal exam: Present: normal bowel sounds. Absent: tenderness - Extremities Exam Extremities exam: Absent: edema - Neurological Exam Neurological exam: Present: alert, oriented X3 Results - Labs CBC & BMP: 05/24/17 06:10 05/24/17 06:10
[2017-05-24] MEDS: INSULIN REGULAR 100 UNIT/ML SUBCUT SCH ×5 (08:36→20:47)
[2017-05-24] MEDS: acetaZOLAMIDE 250 MG TABLET PO SCH ×2 (08:53→20:48)
[2017-05-24] MEDS: PANTOPRAZOLE 40 MG TABLET PO SCH (08:53)
[2017-05-24] MEDS: AZITHROMYCIN 250 MG TABLET PO SCH (08:53)
[2017-05-24] MEDS: BENZONATATE 100 MG CAPSULE PO PRN ×2 (08:53→14:09)
[2017-05-24] MEDS: METOPROLOL TARTRATE 50 MG TABLET PO SCH ×2 (08:54→20:48)
[2017-05-24] MEDS: ASPIRIN CHEW 81 MG TABLET PO SCH (08:54)
[2017-05-24] MEDS: amLODIPine 10 MG TABLET PO SCH (08:54)
[2017-05-24] MEDS: predniSONE 20 MG TABLET PO SCH ×2 (08:54→20:48)
[2017-05-24] MEDS: MONTELUKAST 10 MG TABLET PO SCH (08:54)
[2017-05-24] MEDS: FUROSEMIDE 40 MG TABLET PO SCH (08:54)
[2017-05-24] MEDS: GABAPENTIN 600 MG TABLET PO SCH ×3 (08:54→20:48)
[2017-05-24] MEDS: LOSARTAN 50 MG TABLET PO SCH (08:54)
[2017-05-24] MEDS: ALLOPURINOL 100 MG TABLET PO SCH ×2 (08:54→20:48)
[2017-05-24] MEDS: guaiFENesin 200 MG/10 ML UDCUP PO PRN ×2 (08:55→14:10)
--- NOTE | 2017-05-24 10:50 | Pulmonology Progress Note ---
Pulmonary - PN: Subj Interval history: Beck Holden, [facility]NP[facility], acting as scribe for Dr. 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 At that time, our impressions were: 1. Respiratory failure for oxygen and carbon dioxide. I suspect this is chronic especially in the face of polycythemia. Also the patient says she has an O2 sat monitor and her sats are chronically in the 80s. Because of the hypoxemia is not apparent. May be related related to emphysema but chest x-ray suggests there may be an interstitial component. 2. Tobacco abuse 3. Polycythemia most likely related to hypoxemia 4. Diabetes mellitus 5. Three month history of increasing peripheral edema. Echo cardiographic evidence of enlarged right atrium and right ventricle. Pulmonary hypertension by echocardiographic criteria. This looks like right heart failure on the basis of pulmonary hypertension 6. Pulmonary hypertension. Etiology undetermined. Sleep apnea could be playing a part. Look for other causes such as chronic pulmonary emboli. Note that the patient was on Norvasc 10 mg daily at the time of admission. This would be the first drug to use in most cases so her pulmonary hypertension may already be a diagnosis. 7. Diabetes mellitus 8. High blood pressure 9. See past history 05/23/2017. Patient was interviewed again today. Beck Holden nurse practitioner was present. This lady is not exactly a forthcoming historian. Today we find out that she was hospitalized about a year ago for hypoxemia. She of course does not know why she was hypoxic but her doctor gave her oxygen to use at home whenever she needed it. She is not aware that her chest x-ray has been abnormal in the past and she was not aware that she has pulmonary hypertension. She has gastroesophageal reflux but she denies nocturnal symptoms and she denies microaspiration. Her chest x-ray and CT scan show interstitial disease which is most prominent at the posterior bases. This would be called idiopathic pulmonary fibrosis. 40% of these come from chronic aspirator's. Her pattern of disease strongly suggests is a history of microaspiration. In addition on pulmonary function test she has some mild obstructive disease with bronchodilator effect. Patient has pulmonary hypertension and this is likely related to chronic hypoxemia and probably obstructive sleep apnea. See Dr. Kamini Tsai sleep medicine consultation. She continues to smoke and says she enjoys smoking. I had a very mendoza discussion about the fact that she will be killing herself if she continues to smoke. Also at some point we may need to do biopsies of her lungs but I think this will be further down the road. I am starting her on Singulair 10 mg daily. 05/24/2017. The patient was seen today along with Josiane Cullen RN. Patient was again somnolent and somewhat lethargic. Nursing staff had difficulty arousing her this morning. ABGs yesterday and an FiO2 of 28% showed a PCO2 of 61.3. Patient was wearing oxygen this morning, so we have ordered stat ABGs. Those are pending. We will follow-up the results. She does have chronic hypoxemia and probably obstructive sleep apnea. She also takes Valium at bedtime at home , but this has been discontinued. She did, however, receive 10 mg of morphine at 1737 yesterday and she takes 600 mg Neurontin 3 times daily with the most recent being 854 this morning. On review of her medications, this patient did not take anything similar to morphine as an outpatient. She has problems with CO2 retention, so this is been discontinued. Medications have been reviewed. Morphine has been discontinued as above. Labs been reviewed. White count is 10,300 with 88.3% segs; H&H 16.7/52.8; platelet count 194,000; creatinine 1.40, BUN 40; electrolytes were normal with the exception of an elevated magnesium at 2.5 Exam (Progress Note) - Constitutional Vitals: Period Temp Pulse Resp BP Sys/Ahuja Pulse Ox Last 24 Hr 96.8 F-98.0 F 61-80 16-20 107-148/61-85 79-99 Exam: Chest is symmetrical and kyphotic with prolonged expiration and a very mild tracheal wheeze Heart no gallop Abdomen is obese but nontender and nondistended; bowel sounds are positive 4 Extremities with nothing to suggest acute deep venous thrombophlebitis; mild to moderate chronic venous stasis changes Psychiatric... See above; once awakened able to answer questions appropriately Neurologic long-term motor function is intact Plan: Stat ABGs on present FiO2. We will follow-up results. Continue other present treatment. Stop morphine. See orders. Results - Labs CBC & BMP: 05/24/17 06:10 05/24/17 06:10
[2017-05-24 10:56] LABS: Allen Test Positive
[2017-05-24 10:59] LABS: ABG Base Excess 1.8 MMOL/L (-2.5-2.5); ABG HCO3 25.8 MMOL/L (20-26); ABG PCO2 59.2 MM HG (35-48); ABG PH 7.319 (7.35-7.45); ABG TCO2 25.3 MMOL/L (23-27)
--- NOTE | 2017-05-24 14:34 | Physician Query Form ---
CLICK EDIT DOCUMENT TO SELECT QUERY ANSWER --> OK --> SIGN Michelle Christensen RN Clinical Trouble Operator W) [phone] (f) [phone] [email or web address] PROVIDERS: Make your selection(s) from the choices in EACH section by typing an "x" and enter comments in the comment section. Please use your independent medical judgment in providing your response. This request does not imply that any particular answer is desired or expected. CLINICAL INDICATORS: (Providers should not edit this section) Based on documentation of "Acute COPD" "Respiratory failure for oxygen and carbon dioxide. Suspect this is chronic in the face of polycythemia" "Chronic hypoxemia" Room air SATS 70%. O2 @ 2L applied. then BIPAP applied. SATS on BIPAP between 88-92% . Treated with IV Solu Medrol and Duo Nebs. Based on the above, could you clarify the appropriate diagnosis, if significant , that supports the above abnormalities and additional evaluation, monitoring, and/or treatment rendered: ( ) Acute COPD with Acute Exacerbation ( ) Acute COPD without Acute Exacerbation ( x) Other, please specify: ( ) Clinically unable to determine COMMENTS: Interstitial lung disease with chronic hypercapnic respiratory failure PLEASE ALSO DOCUMENT RESPONSE IN PROGRESS NOTES AND/OR DISCHARGE SUMMARY Use of terms such as suspected, likely, or probable (associated with a specific diagnosis that is being evaluated, monitored, or treated as if it exists) are acceptable and can be restated in the discharge summary if not ruled out. MTDD
[2017-05-24] MEDS: INSULIN NPH 100 UNIT/ML SUBCUT SCH (16:50)
[2017-05-24] MEDS: ENOXAPARIN 40 MG/0.4 ML SYRINGE SUBCUT SCH (16:53)
[2017-05-24] MEDS: cefTRIAXone 1,000 MG in SODIUM CHLORIDE 0.9% 100 ML IV SCH (16:54)
[2017-05-25] MEDS: ALBUTEROL/IPRATROPIUM 3 ML NEB RESP TX SCH ×6 (00:18→19:33)
[2017-05-25] MEDS: ACETAMINOPHEN 325 MG TABLET PO PRN ×2 (00:40→06:24)
[2017-05-25] MEDS: BENZONATATE 100 MG CAPSULE PO PRN (06:24)
[2017-05-25 07:44] LABS: Calcium 8.8 MG/DL (8.5-10.1); Osmolality,Calculated 300.7 MOS/KG (273-304); Potassium 3.8 MMOL/L (3.5-5.1)
[2017-05-25] MEDS: ASPIRIN CHEW 81 MG TABLET PO SCH (09:31)
[2017-05-25] MEDS: acetaZOLAMIDE 250 MG TABLET PO SCH (09:31)
[2017-05-25] MEDS: MONTELUKAST 10 MG TABLET PO SCH (09:32)
[2017-05-25] MEDS: PANTOPRAZOLE 40 MG TABLET PO SCH (09:32)
[2017-05-25] MEDS: LOSARTAN 50 MG TABLET PO SCH (09:32)
[2017-05-25] MEDS: FUROSEMIDE 40 MG TABLET PO SCH (09:32)
[2017-05-25] MEDS: AZITHROMYCIN 250 MG TABLET PO SCH (09:32)
[2017-05-25] MEDS: GABAPENTIN 600 MG TABLET PO SCH ×3 (09:32→20:20)
[2017-05-25] MEDS: amLODIPine 10 MG TABLET PO SCH (09:32)
[2017-05-25] MEDS: ALLOPURINOL 100 MG TABLET PO SCH ×2 (09:32→20:19)
[2017-05-25] MEDS: predniSONE 20 MG TABLET PO SCH ×2 (09:32→20:20)
--- NOTE | 2017-05-25 09:32 | Hospitalist Progress Note ---
Assessment and Plan (1) COPD (chronic obstructive pulmonary disease) Status: Chronic Assessment and plan: Hypercapnia with secondary erythrocytosis and a moderately severe pulmonary hypertension with oxygen sensitivity. Current Visit: Yes (2) Diabetes Status: Chronic Assessment and plan: Exacerbated by corticosteroid therapy. Current Visit: Yes Qualifiers: Diabetes mellitus type: type 2 Hospitalist: Subjective Interval history: 71-year-old female smoker with history of COPD requiring minimal treatment as an outpatient. She had presented with peripheral edema and increasing levels of shortness of breath. She demonstrated on admission a secondary erythrocytosis hypoxemia with hypercapnia with an echocardiogram demonstrating left ventricular ejection fraction of 60% and a right ventricular systolic pressure of 60-65 mmHg. She has shown herself to be highly oxygen sensitive developing a respiratory acidosis yesterday in response to an improvement in her pO2 to 68. She described this morning a cough overnight which is been minimally productive. Her vital signs are stable her capillary blood glucose continues to be poorly controlled with change to p.o. prednisone yesterday. Exam - Constitutional Vitals: Period Temp Pulse Resp BP Sys/Ahuja Pulse Ox Last 24 Hr 96.4 F-97.7 F 54-86 16-22 113-141/56-74 84-98 General appearance: over weight - Respiratory Respiratory exam: Present: clear to auscultation bilaterally. Absent: rales, rhonchi, wheezes - Cardiovascular Cardiovascular exam: Present: regular rate and rhythm - Extremities Exam Extremities exam: Absent: edema - Neurological Exam Neurological exam: Present: alert, oriented X3 Results - Labs CBC & BMP: 05/24/17 06:10 05/25/17 06:12
[2017-05-25] MEDS: INSULIN REGULAR 100 UNIT/ML SUBCUT SCH ×4 (09:34→20:19)
[2017-05-25] MEDS: METOPROLOL TARTRATE 50 MG TABLET PO SCH ×2 (09:35→20:19)
[2017-05-25] MEDS: INSULIN NPH 100 UNIT/ML SUBCUT SCH ×3 (09:37→16:46)
--- NOTE | 2017-05-25 10:45 | Pulmonology Progress Note ---
Pulmonary - PN: Subj Interval history: Beck Holden, [facility], acting as scribe for Dr. 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 At that time, our impressions were: 1. Respiratory failure for oxygen and carbon dioxide. I suspect this is chronic especially in the face of polycythemia. Also the patient says she has an O2 sat monitor and her sats are chronically in the 80s. Because of the hypoxemia is not apparent. May be related related to emphysema but chest x-ray suggests there may be an interstitial component. 2. Tobacco abuse 3. Polycythemia most likely related to hypoxemia 4. Diabetes mellitus 5. Three month history of increasing peripheral edema. Echo cardiographic evidence of enlarged right atrium and right ventricle. Pulmonary hypertension by echocardiographic criteria. This looks like right heart failure on the basis of pulmonary hypertension 6. Pulmonary hypertension. Etiology undetermined. Sleep apnea could be playing a part. Look for other causes such as chronic pulmonary emboli. Note that the patient was on Norvasc 10 mg daily at the time of admission. This would be the first drug to use in most cases so her pulmonary hypertension may already be a diagnosis. 7. Diabetes mellitus 8. High blood pressure 9. See past history 05/23/2017. Patient was interviewed again today. Beck Holden nurse practitioner was present. This lady is not exactly a forthcoming historian. Today we find out that she was hospitalized about a year ago for hypoxemia. She of course does not know why she was hypoxic but her doctor gave her oxygen to use at home whenever she needed it. She is not aware that her chest x-ray has been abnormal in the past and she was not aware that she has pulmonary hypertension. She has gastroesophageal reflux but she denies nocturnal symptoms and she denies microaspiration. Her chest x-ray and CT scan show interstitial disease which is most prominent at the posterior bases. This would be called idiopathic pulmonary fibrosis. 40% of these come from chronic aspirator's. Her pattern of disease strongly suggests is a history of microaspiration. In addition on pulmonary function test she has some mild obstructive disease with bronchodilator effect. Patient has pulmonary hypertension and this is likely related to chronic hypoxemia and probably obstructive sleep apnea. See Dr. Kamini Tsai sleep medicine consultation. She continues to smoke and says she enjoys smoking. I had a very mendoza discussion about the fact that she will be killing herself if she continues to smoke. Also at some point we may need to do biopsies of her lungs but I think this will be further down the road. I am starting her on Singulair 10 mg daily. 05/24/2017. The patient was seen today along with Josiane Cullen RN. Patient was again somnolent and somewhat lethargic. Nursing staff had difficulty arousing her this morning. ABGs yesterday and an FiO2 of 28% showed a PCO2 of 61.3. Patient was wearing oxygen this morning, so we have ordered stat ABGs. Those are pending. We will follow-up the results. She does have chronic hypoxemia and probably obstructive sleep apnea. She also takes Valium at bedtime at home , but this has been discontinued. She did, however, receive 10 mg of morphine at 1737 yesterday and she takes 600 mg Neurontin 3 times daily with the most recent being 854 this morning. On review of her medications, this patient did not take anything similar to morphine as an outpatient. She has problems with CO2 retention, so this is been discontinued. Medications have been reviewed. Morphine has been discontinued as above. Labs been reviewed. White count is 10,300 with 88.3% segs; H&H 16.7/52.8; platelet count 194,000; creatinine 1.40, BUN 40; electrolytes were normal with the exception of an elevated magnesium at 2.5 05/25/2017. The patient was seen today along with Josiane Cullen RN, and Liana Vann RN. The patient is more arousable this morning. We would like to obtain ABGs on room air, so her oxygen has been discontinued for the time being. We will follow-up those results. Yesterday, ABGs on an FiO2 of 28% showed a PCO2 of 59.2 and a PO2 of 67.0. Oxygen saturation was 92.0%. Overall , her respiratory status appears stable. She has an occasional cough, but it is primarily nonproductive. Medications have been reviewed. We made no changes today. Labs been reviewed. Creatinine 1.30, BUN 45, electrolytes are normal. Glucoses remain elevated. Exam (Progress Note) - Constitutional Vitals: Period Temp Pulse Resp BP Sys/Ahuja Pulse Ox Last 24 Hr 97.1 F-97.7 F 58-86 16-22 113-129/56-74 86-98 Exam: Chest is symmetrical and kyphotic with prolonged expiration without appreciable wheeze Heart no gallop Abdomen is obese but nontender and nondistended; bowel sounds are positive 4 Extremities with nothing to suggest acute deep venous thrombophlebitis; mild to moderate chronic venous stasis changes Psychiatric presently awake and alert and able to answer questions appropriately Neurologic long-term motor function is intact Plan: Room air ABGs. We will follow-up those results. Continue other present treatment. See orders. Results - Labs CBC & BMP: 05/24/17 06:10 05/25/17 06:12
[2017-05-25 11:11] LABS: Allen Test Positive; Pt O2 Delivery Device Room Air
[2017-05-25 11:12] LABS: ABG Base Excess 0.8 MMOL/L (-2.5-2.5); ABG HCO3 24.6 MMOL/L (20-26); ABG Oxygen Saturation 79.4 % (95-100); ABG PCO2 56.2 MM HG (35-48); ABG PH 7.321 (7.35-7.45); ABG PO2 46.3 MM HG (80-95); ABG TCO2 24.1 MMOL/L (23-27)
--- NOTE | 2017-05-25 11:26 | Event Note ---
Room air arterial blood gases demonstrated pH is 7.32 PCO2 of 56 with a PO2 of 46. We will go ahead and discontinue the Diamox as pH normalization appears as though it will require renal compensation for irreversible PCO2 retention
[2017-05-25] MEDS: ENOXAPARIN 40 MG/0.4 ML SYRINGE SUBCUT SCH (16:13)
[2017-05-25] MEDS: cefTRIAXone 1,000 MG in SODIUM CHLORIDE 0.9% 100 ML IV SCH (16:14)
[2017-05-26] MEDS: ALBUTEROL/IPRATROPIUM 3 ML NEB RESP TX SCH ×7 (00:01→23:43)
--- NOTE | 2017-05-26 08:27 | Hospitalist Progress Note ---
Assessment and Plan (1) COPD (chronic obstructive pulmonary disease) Status: Chronic Assessment and plan: Hypercapnia with secondary erythrocytosis and moderately severe pulmonary hypertension with oxygen sensitivity. Current Visit: Yes (2) Diabetes Status: Chronic Assessment and plan: Exacerbated by corticosteroid therapy. Current Visit: Yes Qualifiers: Diabetes mellitus type: type 2 Hospitalist: Subjective Interval history: 71-year-old female chronic smoker with history of COPD presented with increasing shortness of breath associated with pedal edema. Echocardiogram showed left ventricular ejection fraction of 60% with right ventricular systolic pressure of 60-65 mmHg. Blood work indicated secondary erythrocytosis with hypoxemia and hypercapnia. Her chest x-ray is minimally abnormal as is her chest exam but she continues to show exquisite oxygen sensitivity with rapid development of respiratory acidosis. She reports that she has not had the CPAP applied at night for the last several nights. Her vital signs are stable and she continues afebrile. Capillary blood glucoses appear to be responding to a combination of insulin and reduction in corticosteroid dosing. Exam - Constitutional Vitals: Period Temp Pulse Resp BP Sys/Ahuja Pulse Ox Last 24 Hr 97.2 F-97.9 F 60-75 16-20 109-154/63-69 78-99 General appearance: over weight - Respiratory Respiratory exam: Present: clear to auscultation bilaterally. Absent: rales, rhonchi, wheezes - Cardiovascular Cardiovascular exam: Present: regular rate and rhythm - Neurological Exam Neurological exam: Present: alert, oriented X3 Results - Labs CBC & BMP: 05/24/17 06:10 05/25/17 06:12
[2017-05-26] MEDS: INSULIN NPH 100 UNIT/ML SUBCUT SCH ×2 (08:46→17:08)
[2017-05-26] MEDS: INSULIN REGULAR 100 UNIT/ML SUBCUT SCH ×4 (08:47→22:03)
[2017-05-26] MEDS: AZITHROMYCIN 250 MG TABLET PO SCH (09:46)
[2017-05-26] MEDS: ALLOPURINOL 100 MG TABLET PO SCH ×2 (09:47→21:45)
[2017-05-26] MEDS: FUROSEMIDE 40 MG TABLET PO SCH (09:47)
[2017-05-26] MEDS: ASPIRIN CHEW 81 MG TABLET PO SCH (09:47)
[2017-05-26] MEDS: predniSONE 20 MG TABLET PO SCH ×2 (09:47→21:45)
[2017-05-26] MEDS: LOSARTAN 50 MG TABLET PO SCH (09:47)
[2017-05-26] MEDS: amLODIPine 10 MG TABLET PO SCH (09:47)
[2017-05-26] MEDS: PANTOPRAZOLE 40 MG TABLET PO SCH (09:47)
[2017-05-26] MEDS: GABAPENTIN 600 MG TABLET PO SCH ×3 (09:47→21:45)
[2017-05-26] MEDS: MONTELUKAST 10 MG TABLET PO SCH (09:47)
[2017-05-26] MEDS: METOPROLOL TARTRATE 50 MG TABLET PO SCH ×2 (09:47→21:45)
--- NOTE | 2017-05-26 10:31 | Pulmonology Progress Note ---
Pulmonary - PN: Subj Interval history: Beck Holden, AG[facility], acting as scribe for Dr. 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 At that time, our impressions were: 1. Respiratory failure for oxygen and carbon dioxide. I suspect this is chronic especially in the face of polycythemia. Also the patient says she has an O2 sat monitor and her sats are chronically in the 80s. Because of the hypoxemia is not apparent. May be related related to emphysema but chest x-ray suggests there may be an interstitial component. 2. Tobacco abuse 3. Polycythemia most likely related to hypoxemia 4. Diabetes mellitus 5. Three month history of increasing peripheral edema. Echo cardiographic evidence of enlarged right atrium and right ventricle. Pulmonary hypertension by echocardiographic criteria. This looks like right heart failure on the basis of pulmonary hypertension 6. Pulmonary hypertension. Etiology undetermined. Sleep apnea could be playing a part. Look for other causes such as chronic pulmonary emboli. Note that the patient was on Norvasc 10 mg daily at the time of admission. This would be the first drug to use in most cases so her pulmonary hypertension may already be a diagnosis. 7. Diabetes mellitus 8. High blood pressure 9. See past history 05/23/2017. Patient was interviewed again today. Beck Holden nurse practitioner was present. This lady is not exactly a forthcoming historian. Today we find out that she was hospitalized about a year ago for hypoxemia. She of course does not know why she was hypoxic but her doctor gave her oxygen to use at home whenever she needed it. She is not aware that her chest x-ray has been abnormal in the past and she was not aware that she has pulmonary hypertension. She has gastroesophageal reflux but she denies nocturnal symptoms and she denies microaspiration. Her chest x-ray and CT scan show interstitial disease which is most prominent at the posterior bases. This would be called idiopathic pulmonary fibrosis. 40% of these come from chronic aspirator's. Her pattern of disease strongly suggests is a history of microaspiration. In addition on pulmonary function test she has some mild obstructive disease with bronchodilator effect. Patient has pulmonary hypertension and this is likely related to chronic hypoxemia and probably obstructive sleep apnea. See Dr. Kamini Tsai sleep medicine consultation. She continues to smoke and says she enjoys smoking. I had a very mendoza discussion about the fact that she will be killing herself if she continues to smoke. Also at some point we may need to do biopsies of her lungs but I think this will be further down the road. I am starting her on Singulair 10 mg daily. 05/24/2017. The patient was seen today along with Josiane Cullen RN. Patient was again somnolent and somewhat lethargic. Nursing staff had difficulty arousing her this morning. ABGs yesterday and an FiO2 of 28% showed a PCO2 of 61.3. Patient was wearing oxygen this morning, so we have ordered stat ABGs. Those are pending. We will follow-up the results. She does have chronic hypoxemia and probably obstructive sleep apnea. She also takes Valium at bedtime at home , but this has been discontinued. She did, however, receive 10 mg of morphine at 1737 yesterday and she takes 600 mg Neurontin 3 times daily with the most recent being 854 this morning. On review of her medications, this patient did not take anything similar to morphine as an outpatient. She has problems with CO2 retention, so this is been discontinued. Medications have been reviewed. Morphine has been discontinued as above. Labs been reviewed. White count is 10,300 with 88.3% segs; H&H 16.7/52.8; platelet count 194,000; creatinine 1.40, BUN 40; electrolytes were normal with the exception of an elevated magnesium at 2.5 05/25/2017. The patient was seen today along with Josiane Cullen RN, and Liana Vann RN. The patient is more arousable this morning. We would like to obtain ABGs on room air, so her oxygen has been discontinued for the time being. We will follow-up those results. Yesterday, ABGs on an FiO2 of 28% showed a PCO2 of 59.2 and a PO2 of 67.0. Oxygen saturation was 92.0%. Overall , her respiratory status appears stable. She has an occasional cough, but it is primarily nonproductive. Medications have been reviewed. We made no changes today. Labs been reviewed. Creatinine 1.30, BUN 45, electrolytes are normal. Glucoses remain elevated. 05/26/17. The patient was seen today along with Josiane Cullen RN. Mrs. Aguilar states that her breathing is "doing fine". ABGs obtained yesterday on room air showed a pH of 7.321, PCO2 of 56.2, PO2 of 46.3, Bicarb of 24.6, and O2 sat of 79.4. Oxygen was reapplied. See Dr. Ruiz's note. The previously noted Diamox was discontinued. As noted before, she has had home oxygen for at least a year secondary to hypoxemia. She has probable LORI (this is pending NPSG by Dr. Tsai at discharge) and has pulmonary hypertension (as noted on echocardiogram done this admission). She was started on Norvasc at admission. She has polycythemia. She has tobacco abuse and we have had very mendoza discussions with her regarding the absolute need for tobacco cessation. Medications have been reviewed. We made no changes today. Labs have been reviewed. No new labs were drawn today. There are no positive cultures. Exam (Progress Note) - Constitutional Vitals: Period Temp Pulse Resp BP Sys/Ahuja Pulse Ox Last 24 Hr 96.8 F-97.9 F 60-75 16-20 109-154/63-76 78-99 Exam: Chest is symmetrical and kyphotic with prolonged expiration without appreciable wheeze Heart no gallop Abdomen is obese but nontender and nondistended; bowel sounds are positive 4 Extremities with nothing to suggest acute deep venous thrombophlebitis; mild to moderate chronic venous stasis changes Psychiatric presently awake and alert and able to answer questions appropriately Neurologic long-term motor function is intact Plan: She is stable from a pulmonary standpoint. Dr. Ruiz is now managing her pulmonary medications. We will sign off. Please reconsult PRN. Results - Labs CBC & BMP: 05/24/17 06:10 05/25/17 06:12
[2017-05-26] MEDS ORDERED: MAGNESIUM HYDROXIDE SUSP 30 ML UDCUP PO PRN (15:17)
[2017-05-26] MEDS: LIDOCAINE 5% PATCH TRANSDERM SCH (15:34)
[2017-05-26] MEDS: ENOXAPARIN 40 MG/0.4 ML SYRINGE SUBCUT SCH (17:05)
[2017-05-26] MEDS: cefTRIAXone 1,000 MG in SODIUM CHLORIDE 0.9% 100 ML IV SCH (17:07)
[2017-05-27] MEDS: guaiFENesin 200 MG/10 ML UDCUP PO PRN (00:13)
[2017-05-27] MEDS: ALBUTEROL/IPRATROPIUM 3 ML NEB RESP TX SCH ×5 (04:21→20:42)
[2017-05-27] MEDS: INSULIN REGULAR 100 UNIT/ML SUBCUT SCH ×4 (08:26→21:47)
[2017-05-27] MEDS: INSULIN NPH 100 UNIT/ML SUBCUT SCH ×2 (08:26→17:11)
[2017-05-27] MEDS: GABAPENTIN 600 MG TABLET PO SCH ×3 (08:27→21:46)
[2017-05-27] MEDS: ASPIRIN CHEW 81 MG TABLET PO SCH (08:27)
[2017-05-27] MEDS: MONTELUKAST 10 MG TABLET PO SCH (08:27)
[2017-05-27] MEDS: AZITHROMYCIN 250 MG TABLET PO SCH (08:27)
[2017-05-27] MEDS: amLODIPine 10 MG TABLET PO SCH (08:27)
[2017-05-27] MEDS: FUROSEMIDE 40 MG TABLET PO SCH (08:27)
[2017-05-27] MEDS: PANTOPRAZOLE 40 MG TABLET PO SCH (08:27)
[2017-05-27] MEDS: LOSARTAN 50 MG TABLET PO SCH (08:27)
[2017-05-27] MEDS: LIDOCAINE 5% PATCH TRANSDERM SCH (08:27)
[2017-05-27] MEDS: METOPROLOL TARTRATE 50 MG TABLET PO SCH ×2 (08:27→21:46)
[2017-05-27] MEDS: ALLOPURINOL 100 MG TABLET PO SCH ×2 (08:27→21:46)
[2017-05-27] MEDS: predniSONE 20 MG TABLET PO SCH ×2 (08:27→21:46)
--- NOTE | 2017-05-27 08:37 | Hospitalist Progress Note ---
Assessment and Plan (1) COPD (chronic obstructive pulmonary disease) Status: Chronic Assessment and plan: Hypercapnia with secondary erythrocytosis and moderately severe pulmonary hypertension with oxygen sensitivity. Current Visit: Yes (2) Diabetes Status: Chronic Assessment and plan: Exacerbated by corticosteroid therapy. Augmenting insulin dosing Current Visit: Yes Qualifiers: Diabetes mellitus type: type 2 Hospitalist: Subjective Interval history: 71-year-old female chronic smoker with history of COPD with presented with increasing shortness of breath associated with peripheral edema. Echocardiogram showed normal left ventricular ejection fraction 60% right ventricular systolic pressure was elevated at 60-65 mmHg. She does have secondary erythrocytosis with arterial blood gases showing hypercapnia and hypoxemia. Her chest exam is relatively unremarkable and chest x-ray is not dramatically abnormal but the patient has recurrent episodes of respiratory acidosis associated with oxygen use. She has a chronic diabetic requiring minimal treatment but with corticosteroids has developed significant hyperglycemia. She did sleep with CPAP last night and this apparently was helpful. Her vital signs are stable and she is afebrile. Exam - Constitutional Vitals: Period Temp Pulse Resp BP Sys/Ahuja Pulse Ox Last 24 Hr 96.7 F-98.1 F 57-88 17-22 131-150/68-79 85-98 General appearance: over weight - Respiratory Respiratory exam: Present: clear to auscultation bilaterally. Absent: rales, rhonchi, wheezes - Cardiovascular Cardiovascular exam: Present: regular rate and rhythm - Extremities Exam Extremities exam: Absent: edema - Neurological Exam Neurological exam: Present: alert, oriented X3 Results - Labs CBC & BMP: 05/24/17 06:10 05/25/17 06:12
[2017-05-27] MEDS: cefTRIAXone 1,000 MG in SODIUM CHLORIDE 0.9% 100 ML IV SCH (17:10)
[2017-05-27] MEDS: ENOXAPARIN 40 MG/0.4 ML SYRINGE SUBCUT SCH (17:11)
[2017-05-27] MEDS: BENZONATATE 100 MG CAPSULE PO PRN (21:46)
[2017-05-27] MEDS: ACETAMINOPHEN 325 MG TABLET PO PRN (21:47)
[2017-05-28] MEDS: ALBUTEROL/IPRATROPIUM 3 ML NEB RESP TX SCH ×7 (00:27→23:15)
[2017-05-28 07:01] LABS: Calcium 9.3 MG/DL (8.5-10.1)
[2017-05-28 07:02] LABS: Osmolality,Calculated 293.4 MOS/KG (273-304); Potassium 4.4 MMOL/L (3.5-5.1)
[2017-05-28] MEDS: FUROSEMIDE 40 MG TABLET PO SCH (08:15)
[2017-05-28] MEDS: LIDOCAINE 5% PATCH TRANSDERM SCH (08:15)
[2017-05-28] MEDS: ALLOPURINOL 100 MG TABLET PO SCH ×2 (08:16→20:49)
[2017-05-28] MEDS: MONTELUKAST 10 MG TABLET PO SCH (08:16)
[2017-05-28] MEDS: predniSONE 20 MG TABLET PO SCH ×2 (08:16→20:49)
[2017-05-28] MEDS: AZITHROMYCIN 250 MG TABLET PO SCH (08:16)
[2017-05-28] MEDS: GABAPENTIN 600 MG TABLET PO SCH ×3 (08:16→20:49)
[2017-05-28] MEDS: amLODIPine 10 MG TABLET PO SCH (08:16)
[2017-05-28] MEDS: PANTOPRAZOLE 40 MG TABLET PO SCH (08:16)
[2017-05-28] MEDS: LOSARTAN 50 MG TABLET PO SCH (08:16)
[2017-05-28] MEDS: BENZONATATE 100 MG CAPSULE PO PRN ×2 (08:16→20:49)
[2017-05-28] MEDS: METOPROLOL TARTRATE 50 MG TABLET PO SCH ×2 (08:16→20:49)
[2017-05-28] MEDS: ASPIRIN CHEW 81 MG TABLET PO SCH (08:16)
[2017-05-28] MEDS: INSULIN REGULAR 100 UNIT/ML SUBCUT SCH ×4 (08:18→20:50)
[2017-05-28] MEDS: INSULIN NPH 100 UNIT/ML SUBCUT SCH ×2 (08:19→16:02)
--- NOTE | 2017-05-28 10:40 | Hospitalist Progress Note ---
Assessment and Plan - Time spent with patient Time spent with patient: Greater than 30 minutes (Pt is new to me. I reviewed pt 's chart today. I discussed with pt in regarding her clinical status today.) (1) COPD (chronic obstructive pulmonary disease) Status: Chronic Assessment and plan: On PO steroid. Resp care, oxygen, and NEB treatment. On antibiotics since adm. Will keep on for one more day, dc in am. Pulm f/u. Current Visit: Yes (2) Interstitial lung disease Status: Acute Assessment and plan: Appreciate Pulm f/u Current Visit: Yes (3) Diabetes Status: Chronic Assessment and plan: Monitor glucose level. Continue insulin. Current Visit: Yes Qualifiers: Diabetes mellitus type: type 2 (4) Unspecified sleep apnea Status: Acute Current Visit: Yes Hospitalist: Subjective Interval history: No overnight acute event. SOB better. No fever, chest pain, abd pain, N/V/D, or dysuria. Interval history: 71-year-old female chronic smoker with history of COPD with presented with increasing shortness of breath associated with peripheral edema. Echocardiogram showed normal left ventricular ejection fraction 60% right ventricular systolic pressure was elevated at 60-65 mmHg. She does have secondary erythrocytosis with arterial blood gases showing hypercapnia and hypoxemia. Her chest exam is relatively unremarkable and chest x-ray is not dramatically abnormal but the patient has recurrent episodes of respiratory acidosis associated with oxygen use. She has a chronic diabetic requiring minimal treatment but with corticosteroids has developed significant hyperglycemia. She did sleep with CPAP last night and this apparently was helpful. Her vital signs are stable and she is afebrile. Exam - Constitutional Vitals: Period Temp Pulse Resp BP Sys/Ahuja Pulse Ox Last 24 Hr 97.1 F-98.1 F 48-85 18-22 130-150/66-85 88-100 Exam: General: Lying in bed supine. AAOx3, on oxygen by NC. HEENT: NC AT EOMI, normal lips and gum. Lungs: B/l CTA but decreased breath sound. Heart: +S1/S2, RRR ABD; +BS, NT ND Neuro: AAOx3. Results - Labs CBC & BMP: 05/24/17 06:10 05/28/17 05:42
[2017-05-28] MEDS: cefTRIAXone 1,000 MG in SODIUM CHLORIDE 0.9% 100 ML IV SCH (16:01)
[2017-05-28] MEDS: ENOXAPARIN 40 MG/0.4 ML SYRINGE SUBCUT SCH (16:01)
[2017-05-28] MEDS: ACETAMINOPHEN 325 MG TABLET PO PRN (17:49)
[2017-05-29] MEDS: ALBUTEROL/IPRATROPIUM 3 ML NEB RESP TX SCH ×3 (03:51→11:07)
[2017-05-29] MEDS: ACETAMINOPHEN 325 MG TABLET PO PRN (04:31)
[2017-05-29 06:59] LABS: Basophils % 0.2 % (0.0-0.8); Eosinophils # 0.1 10*3/uL (0.0-0.87); Eosinophils % 0.9 % (0.00-10.9); Hemoglobin 16.8 GM/DL (12.0-16.0); Immature Granulocytes % 1.7 %; Immature Granulocytes Absolute 0.16 #; Lymphocytes # 1.1 10*3/uL (1.4-4.0); Lymphocytes % 12.1 % (21.3-54.2); Mean Corpuscular HGB Conc 31.7 GM/DL (32-36); Mean Corpuscular Hemoglobin 28 PG (27-34); Mean Corpuscular Volume 88.5 FL (87-102); Mean Platelet Volume 10.7 FL (9.6-12.0); Monocytes # 0.8 10*3/uL (0.11-0.8); Monocytes % 8.5 % (1.7-12.7); Neutrophils % 76.6 % (38.7-73.9); Platelet Count 224 T/CUMM (130-400); Red Blood Count 5.99 MC/CUMM (3.8-5.5); Red Cell Distribution Width 20.8 % (9.3-17.3); White Blood Count 9.2 T/CUMM (4-12)
[2017-05-29 07:32] LABS: Osmolality,Calculated 297.3 MOS/KG (273-304); Potassium 4.5 MMOL/L (3.5-5.1)
[2017-05-29] MEDS: LOSARTAN 50 MG TABLET PO SCH (08:21)
[2017-05-29] MEDS: MONTELUKAST 10 MG TABLET PO SCH (08:21)
[2017-05-29] MEDS: AZITHROMYCIN 250 MG TABLET PO SCH (08:21)
[2017-05-29] MEDS: PANTOPRAZOLE 40 MG TABLET PO SCH (08:21)
[2017-05-29] MEDS: ALLOPURINOL 100 MG TABLET PO SCH (08:21)
[2017-05-29] MEDS: GABAPENTIN 600 MG TABLET PO SCH (08:21)
[2017-05-29] MEDS: amLODIPine 10 MG TABLET PO SCH (08:22)
[2017-05-29] MEDS: predniSONE 20 MG TABLET PO SCH (08:22)
[2017-05-29] MEDS: METOPROLOL TARTRATE 50 MG TABLET PO SCH (08:22)
[2017-05-29] MEDS: FUROSEMIDE 40 MG TABLET PO SCH (08:22)
[2017-05-29] MEDS: INSULIN NPH 100 UNIT/ML SUBCUT SCH (08:22)
[2017-05-29] MEDS: LIDOCAINE 5% PATCH TRANSDERM SCH (08:22)
[2017-05-29] MEDS: ASPIRIN CHEW 81 MG TABLET PO SCH (08:22)
[2017-05-29] MEDS: INSULIN REGULAR 100 UNIT/ML SUBCUT SCH ×2 (08:23→12:11)
--- NOTE | 2017-05-29 11:07 | Discharge Summary ---
<Mya Patel - Last Filed: 05/29/17 10:59> Hospital Course - Hospital Course Hospital Course: Ms. Aguilar is a 71 yr old female with a history of htn, dm, and copd that presented to the ED after referral from her doctor. Pt. reported at the time that she had been experiencing progressively worsening shortness of breath and lower extremity edema. She also revealed that she has been diagnosed with pneumonia 2 weeks prior and was placed on oral antibiotics. Patient reported routinely checking her oxygen saturations at home and reported low stats (upper 60s to upper 70s). Patient is a current everyday smoker. Labs and ED revealed WBC 7.4, H and H 17.1/53.1, BUN and creatinine 37/1 with BNP 348. CXR showed cardiomegaly and left basilar atelectasis. Pt was admitted to the hospitalist service and treated for COPD, CHF, and lower extremity edema. Patient was treated with bronchodilators, supplemental oxygen, nebulizer treatments as well as IV diuretics. Pulmonology and sleep medicine were consulted to evaluate. Pt. was advised to have sleep study performed in light of symptoms concerning for LORI. Pt. was prescribed bipap therapy at night but refused. Pt's condition has improved and she has reached maximum benefit of this hospital stay. Labs and vitals signs are stable. Pt. is stable to be discharged. I have personally seen and examined this patient today. I agree with the below note as prepared by the advanced practice provider. I agree with the assessment and plan. The patient also complains of pain in the left upper extremity. I have advised her to follow-up with her primary care physician for outpatient MRI of her left shoulder. The patient has been instructed to follow-up with Dr. Tsai and Dr. Burgos as an outpatient. She needs a formal evaluation for sleep apnea. She also has evidence of polycythemia and has received extensive smoking cessation counseling. I spent 10 minutes with the patient discussing the importance of cessation of tobacco products related to her breathing difficulties and hemodynamic changes. Discharge Plan - Discharge Data Disposition: Disch To Home/Self Care - Discharge Medications New amLODIPine [Norvasc] 10 mg PO DAILY tablet Aspirin Chew Tab 81 mg PO DAILY tablet HYDROcodone/ACETAMIN 5-325 [Freeman 5-325] 1 tablet PO Q6H PRN #30 tablet PRN Reason: Pain Moderate (4-7) Insulin NPH [HumuLIN N] 25 unit SUBCUT BIDAC #1 vial Lidocaine 5% Patch [Lidoderm 5% Patch] 1 patch TRANSDERM DAILY #14 patch Nicotine 21 mg/24 Hr Patch [Nicoderm CQ 21 mg/24 hr Patch] 1 patch TRANSDERM DAILY PRN patch PRN Reason: Nicotine Withdrawal Pantoprazole Tab [Protonix Tab] 40 mg PO DAILY #30 tablet predniSONE TAB [PredniSONE] 20 mg PO BID #30 tablet Furosemide Tab [Lasix Tab] 40 mg PO DAILY #30 tablet Montelukast Tab [Singulair Tab] 10 mg PO DAILY #30 tablet Continue Diazepam Tab [Valium Tab] 5 mg PO BEDTIME Gabapentin Cap/Tab [Neurontin Cap/Tab] 600 mg PO TID Albuterol Sulfate [Proair HFA] 2 puff INH Q6H PRN PRN Reason: Shortness Of Breath/Wheezing Chlorthalidone 25 mg PO DAILY metFORMIN [Glucophage] 500 mg PO BID W/MEALS Losartan [Cozaar] 50 mg PO DAILY Triamcinolone Acetonide [Triamcinolone 0.1% Cream] 1 applic TOP BID Glycopyrrolate/Formoterol Fum [Bevespi Aerosphere Inhaler] 1 inhaler INH DAILY Cetirizine Tab [ZyrTEC Tab] 1 tablet PO DAILY PRN PRN Reason: Allergy Symptoms Aspirin EC Tab 1 tablet PO DAILY Metoprolol Tartrate Tab [Lopressor Tab] 50 mg PO BID Albuterol/Ipratropium Neb [Duoneb] 3 ml RESP TX RT Q6H Allopurinol 2 tablet PO BID - Follow Up or Referral Follow Up: Joni Arreola MD [Physician] - Kamini Tsai MD [Physician] - - Forms/Instructions Exam - Constitutional Vitals: Period Temp Pulse Resp BP Sys/Ahuja Pulse Ox Last 24 Hr 97.0 F-98.3 F 58-72 17-22 131-139/52-84 87-98 Discharge Results Labs on day of discharge: Labs from last 24 hours 05/29/17 05/29/17 05/29/17 11:51 07:46 05:33 WBC RBC Hgb Hct MCV MCH MCHC RDW Plt Count MPV Neut % (Auto) Lymph % (Auto) [place] % (Auto) Eos % (Auto) Baso % (Auto) Neut # (Auto) Lymph # (Auto) [place] # (Auto) Eos # (Auto) Baso # (Auto) Immature Gran % Nucleated RBC % Immature Gran # Nucleated RBCs # Immature Plt Fraction Sodium 141 Potassium 4.5 Chloride 103 Carbon Dioxide 34 H Anion Gap 8.5 BUN 34 H Creatinine 1.10 H GFR Calculation 70 BUN/Creatinine Ratio 30.00 H Glucose 259 H POC Glucose 257 H 208 H Calculated Osmolality 297.3 Calcium 9.0 05/29/17 05/28/17 05/28/17 05:33 20:30 15:37 WBC 9.2 RBC 5.99 H Hgb 16.8 H Hct 53.0 H MCV 88.5 MCH 28 MCHC 31.7 L RDW 20.8 H Plt Count 224 MPV 10.7 Neut % (Auto) 76.6 H Lymph % (Auto) 12.1 L [place] % (Auto) 8.5 Eos % (Auto) 0.9 Baso % (Auto) 0.2 Neut # (Auto) 7.0 Lymph # (Auto) 1.1 L [place] # (Auto) 0.8 Eos # (Auto) 0.1 Baso # (Auto) 0.0 Immature Gran % 1.7 Nucleated RBC % 0.0 Immature Gran # 0.16 Nucleated RBCs # 0.00 Immature Plt Fraction 0.0 Sodium Potassium Chloride Carbon Dioxide Anion Gap BUN Creatinine GFR Calculation BUN/Creatinine Ratio Glucose POC Glucose 239 H 327 H Calculated Osmolality Calcium DS: Provider Date of admission: 05/18/17 13:51 Primary care physician: Janine Love Attending physician on admission: Cheli Simon MD Consults: 05/21/17 18:13 Consult to Physician [CONS] Routine Comment: Consulting Provider: Joni Arreola When should Consulting Provider be notified: In am Person Notified: md cao Date Notified: 05/22/17 Time Notified: 08:36 Consult Notification Comment: couldn't leave message said messages not being accepted 05/22/17 07:10 Consult to Physician [CONS] Routine Comment: COPD, CO2 retainer, possible sleep apnea Consulting Provider: Kamini Tsai Person Notified: Michelle Date Notified: 05/22/17 Time Notified: 08:35 05/22/17 11:32 Consult to Occupational Therapy [CONS] Routine Reason for Occupational Therapy: Evaluate and Treat PT [Consult to Physical Therapy] [CONS] Routine Reason for Physical Therapy: Evaluate and Treat Discharging clinician: Mya Patel NP <Jess Perry - Last Filed: 05/29/17 12:29> Hospital Course - Time spent with patient Time with patient DS: Greater than 30 minutes (Total discharge time for this patient, including [id number] time, clinical documentation, medication reconciliation, and discharge planning was 34 minutes.) Diagnosis - Discharge Diagnosis (1) Dyspnea Status: Resolved (2) Lower extremity edema Status: Resolved (3) Nicotine addiction Status: Acute (4) COPD (chronic obstructive pulmonary disease) Status: Chronic (5) CHF (congestive heart failure) Status: Acute (6) Hypertension Status: Chronic (7) Diabetes Status: Chronic (8) Unspecified sleep apnea Status: Chronic (9) Interstitial lung disease Status: Chronic Discharge Plan - Discharge Data Condition at Discharge: Stable Discharge Diet: advance to your usual diet Activity: resume usual activities as tolerated Hygiene: no restrictions Weight Bearing at Discharge: full weight bearing Driving: no restrictions Contact your physician if you experience:: fever over 101, Shortness of breath, pain uncontrolled by pain medications DS: Provider Expected date of discharge: 05/29/17
[2017-05-29 12:32] VITALS: BP 144/68
== END 2017-05-29 14:53 | disposition home or self-care (01) | DRG 292 ==
LOC: N.ED 10:52 → N.EDINP 13:51 → SUATTDRO 13:51 → N.5E 15:42
PROVIDERS: ADMIT Internal Medicine; ATTEND Internal Medicine